=== PATIENT | male | born 1955 | race Caucasian/White ===

== ENCOUNTER 2018-07-09 16:20 | Inpatient (IN) | payer MEDICAID ==
[~2018-07-09] VITALS: Ht 175.3 cm; Wt 83.9 kg
--- NOTE | ~2018-07-09 | MORECARE ---
CASE MANAGEMENT DISCHARGE SUMMARY PATIENT: ZHOU DAVIS UNIT: [id number] ADM DATE: 07/09/18 AGE: 63 : 55 SEX: M ROOM/BED: D.2238 AUTHOR: ANNETTE SANTIAGO PHYSICIAN: REFERRING PHYSICIAN: STACEY WESTBROOK MD DATE OF SERVICE: 07/18/18 Discharge Plan Patient Name: ZHOU DAVIS Facility: [facility]:[place] : 1955 Planned Disposition: Home Anticipated Discharge Date: Discharge Date: Expected LOS: Initial Reviewer: [email or web address] Initial Review Date: 07/10/2018 Generated: 07/18/18 12:27 pm Comments DCP- Discharge Planning Updated by [email or web address]: Chichi Babcock on 07/18/18 10:[address] Refusing MRI today, states "It's too cold and rainy and you cant move in the MRI". The nurse offered antianxiety med, he refuses. Dr. Dent notified he refused MRI. I spoke with Robinson with Dr. Armando and informed her as well. I also informed Robinson that patient is requesting a hospital bed. His therapy notes do not support insurance approval for hospital bed. CM will continue to follow and assist with discharge planning/needs. DCP- Discharge Planning Updated by [id number]: Nedra Sams on 07/17/18 1:[address] CM MET WITH PATIENT TO ASSESS DSICHARGE PLANNING NEEDS. PATIENT STATED THAT HE LIVES WITH HIS AND PLANS TO RETURN THERE AT DISCHARGE. HE USES A CANE, BUT ASKED FOR A HOSPITAL BED WHEN HE IS DISCHARGED HOME. HE IS WAITING TO FIND OUT WHAT HIS TREATMENT PLAN IS GOING TO BE. HIS RHOAN WILL BE THE ONE TO TAKE HER HOME AT DISCHARGE. CM WILL CONTINUE TO FOLLOW AND ASSIST WITH DC PLANNING DCP- Discharge Planning Updated by [email or web address]: Shelby Watters on 07/10/18 3:[address] Patient Name: ZHOU DAVIS Admission Status: ER Accout number: [id number] Admission Date: 07-09-2018 : 1955 Admission Diagnosis: Attending: STACEY WESTBROOK Current LOS: 1 Anticipated DC Date: Planned Disposition: Primary Insurance: MEDICAID [place] Discharge Planning Comments: CM MET WITH PATIENT AND HIS FOR A FEW MINUTES THEN THE DOCTOR CAME IN. HE WAS VERY AGITATED AND DIDN'T WANT TO TALK RIGHT NOW. CM WILL FOLLOW UP WITH HIM ABOUT DC PLANNING NEEDS. HE JUST HAD A BIOPSY DONE TODAY. Parts Facilitator: Shelbydiana Watters DCPIA - Discharge Planning Initial Assessment Updated by [email or web address]: Shelby Watters on 07/10/18 4:22 pm * Is the patient Alert and Oriented? Yes * PCP PIETRO * Pharmacy [facility] * Preadmission Environment Home with Family * ADLs Independent Last DP export: 07/17/18 2:04 Patient Name: ZHOU DAVIS Page 63645 at 1128 All edits/amendments must be made on the electronic document DICTATION DATE: 07/18/181126 NURSE PRACTITIONER PER DIEM: IAN 07/18/181126 RPT#: [id number] DC DATE: STATUS: ADM IN [facility] [address] [place] [address] END OF REPORT
--- NOTE | ~2018-07-09 | MORECARE ---
CASE MANAGEMENT DISCHARGE SUMMARY PATIENT: ZHOU DAVIS UNIT: [id number] ADM DATE: 07/09/18 AGE: 63 : 55 SEX: M ROOM/BED: D.2238 AUTHOR: ANNETTE SANTIAGO PHYSICIAN: REFERRING PHYSICIAN: STACEY WESTBROOK MD DATE OF SERVICE: 07/18/18 Discharge Plan Patient Name: ZHOU DAVIS Facility: [facility]:[place] : 1955 Planned Disposition: Home Anticipated Discharge Date: Discharge Date: Expected LOS: Initial Reviewer: [email or web address] Initial Review Date: 07/10/2018 Generated: 07/18/18 3:31 pm Comments DCP- Discharge Planning Updated by [email or web address]: Chichi Babcock on 07/18/18 1:[address] Met with patient to discuss need for home health, he declines at this time. States he wants to wait to see what Dr. Armando says. States his family will pick him up at discharge. CM will continue to follow and assist with discharge planning/needs. DCP- Discharge Planning Updated by [email or web address]: Chichi Babcock on 07/18/18 11:[address] Spoke with patient regarding discharge plans. I informed him that Dr. Dent states he is ok for discharge today and have tests on an outpatient basis once the biopsy results are back. He states he wants to make sure it is ok with Dr. Armando. I informed him that Dr. Armando would see him today and he would be the one to write the order if he agrees. Patient states he does not need me to get him a hospital bed that he can get one on a "swap shop, they are on there all the time." CM will continue to follow and assist with discharge planning/needs. DCP- Discharge Planning Updated by [email or web address]: Chichi Babcock on 07/18/18 10:[address] Refusing MRI today, states "It's too cold and rainy and you cant move in the MRI". The nurse offered antianxiety med, he refuses. Dr. Dent notified he refused MRI. I spoke with Robinson with Dr. Armando and informed her as well. I also informed Robinson that patient is requesting a hospital bed. His therapy notes do not support insurance approval for hospital bed. CM will continue to follow and assist with discharge planning/needs. DCP- Discharge Planning Updated by [id number]: Nedra Sams on 07/17/18 1:[address] CM MET WITH PATIENT TO ASSESS DSICHARGE PLANNING NEEDS. PATIENT STATED THAT HE LIVES WITH HIS AND PLANS TO RETURN THERE AT DISCHARGE. HE USES A CANE, BUT ASKED FOR A HOSPITAL BED WHEN HE IS DISCHARGED HOME. HE IS WAITING TO FIND OUT WHAT HIS TREATMENT PLAN IS GOING TO BE. HIS ROHAN WILL BE THE ONE TO TAKE HER HOME AT DISCHARGE. CM WILL CONTINUE TO FOLLOW AND ASSIST WITH DC PLANNING DCP- Discharge Planning Updated by [email or web address]: Shelbydiana Watters on 07/10/18 3:[address] Patient Name: ZHOU DAVIS Admission Status: ER Accout number: [id number] Admission Date: 07-09-2018 : 1955 Admission Diagnosis: Attending: STACEY WESTBROOK Current LOS: 1 Anticipated DC Date: Planned Disposition: Primary Insurance: MEDICAID [place] Discharge Planning Comments: CM MET WITH PATIENT AND HIS FOR A FEW MINUTES THEN THE DOCTOR CAME IN. HE WAS VERY AGITATED AND DIDN'T WANT TO TALK RIGHT NOW. CM WILL FOLLOW UP WITH HIM ABOUT DC PLANNING NEEDS. HE JUST HAD A BIOPSY DONE TODAY. Research Neuropsychologist: Shelby Watters DCPIA - Discharge Planning Initial Assessment Updated by [email or web address]: Shelby Janene on 07/10/18 4:22 pm * Is the patient Alert and Oriented? Yes * PCP PIETRO * Pharmacy [facility] [address] * Preadmission Environment Home with Family * ADLs Independent Last DP export: 07/18/18 11:39 Patient Name: ZHOU DAVIS Page [phone] at 1431 All edits/amendments must be made on the electronic document DICTATION DATE: 07/18/181430 LOAD CHECKER: IAN 07/18/181430 RPT#: [id number] DC DATE: STATUS: ADM IN [facility] [address] [place] [address] END OF REPORT
--- NOTE | ~2018-07-09 | OP ---
PATIENT NAME: ZHOU DAVIS MEDICAL RECORD: [id number] :[birth year] LOCATION:D.MS [id number] ADMISSION DATE:07/09/18 SURGEON: NIKOLAY SANABRIA MD DATE OF OPERATION: 07/22/2018 PREOPERATIVE DIAGNOSES: 1. Malignancy, undifferentiated. 2. Metastatic iliac lesion. 3. Pelvic mass. POSTOPERATIVE DIAGNOSES: 1. Malignancy, undifferentiated. 2. Metastatic iliac lesion. 3. Pelvic mass. PROCEDURE: Left subclavian vein port placement. SURGEON: Nikolay Sanabria MD REPORT OF PROCEDURE: The patient's left chest was prepped and draped in sterile fashion. A needle was used to cannulate the left subclavian vein and a guidewire was advanced with ease. Fluoro was then used to note that the wire was in good position in the venous system. A skin incision was made on the left superior lateral chest and a subcutaneous pouch was made over the pectoral fascia. The catheter was tunneled between this pouch and the wire exit site. The port was then sutured to the pectoral fascia using interrupted 2-0 Prolenes. The catheter was cut with a beveled tip at 22 cm. The dilator trocar device placed over the wire, and the wire and dilator were removed. The catheter tip was advanced through the trocar and the trocar was then removed. Fluoro was used to note that the catheter tip was in good position at the right atrial supra vena caval junction. The catheter aspirated nonpulsatile dark blood and flushed easily with heparinized saline. The subcutaneous tissues were reapproximated with interrupted 3-0 Vicryl and the skin was closed with running subcutaneous 5-0 Monocryl. COMPLICATIONS: None. CONDITION: Stable. ANESTHESIA: General endotracheal. BLOOD LOSS: Minimal. TRANSINT:[id number] Voice Confirmation ID: [id number] DOCUMENT ID: [id number] NIKOLAY SANABRIA MD at 0916 CC: [id number] DICTATION DATE: 07/22/18 0851 NEWSPAPER STUFFER: 07/22/18 0943 DIS IN 07/22/18 [address] [place] [address]
--- NOTE | ~2018-07-09 | MORECARE ---
CASE MANAGEMENT DISCHARGE SUMMARY PATIENT: ZHOU DAVIS UNIT: [id number] ADM DATE: 07/09/18 AGE: 63 : 55 SEX: M ROOM/BED: D.2238 AUTHOR: ANNETTE SANTIAGO PHYSICIAN: REFERRING PHYSICIAN: STACEY WESTBROOK MD DATE OF SERVICE: 07/18/18 Discharge Plan Patient Name: ZHOU DAVIS Facility: [facility]:[place] : 1955 Planned Disposition: Home Anticipated Discharge Date: Discharge Date: Expected LOS: Initial Reviewer: [email or web address] Initial Review Date: 07/10/2018 Generated: 07/18/18 1:39 pm Comments DCP- Discharge Planning Updated by [email or web address]: Chichi Babcock on 07/18/18 11:[address] Spoke with patient regarding discharge plans. I informed him that Dr. Dent states he is ok for discharge today and have tests on an outpatient basis once the biopsy results are back. He states he wants to make sure it is ok with Dr. Armando. I informed him that Dr. Armando would see him today and he would be the one to write the order if he agrees. Patient states he does not need me to get him a hospital bed that he can get one on a "swap shop, they are on there all the time." CM will continue to follow and assist with discharge planning/needs. DCP- Discharge Planning Updated by [email or web address]: Chichi Babcock on 07/18/18 10:[address] Refusing MRI today, states "It's too cold and rainy and you cant move in the MRI". The nurse offered antianxiety med, he refuses. Dr. Dent notified he refused MRI. I spoke with Robinson with Dr. Armando and informed her as well. I also informed Robinson that patient is requesting a hospital bed. His therapy notes do not support insurance approval for hospital bed. CM will continue to follow and assist with discharge planning/needs. DCP- Discharge Planning Updated by [id number]: Nedra Sams on 07/17/18 1:[address] CM MET WITH PATIENT TO ASSESS DSICHARGE PLANNING NEEDS. PATIENT STATED THAT HE LIVES WITH HIS AND PLANS TO RETURN THERE AT DISCHARGE. HE USES A CANE, BUT ASKED FOR A HOSPITAL BED WHEN HE IS DISCHARGED HOME. HE IS WAITING TO FIND OUT WHAT HIS TREATMENT PLAN IS GOING TO BE. HIS ROHAN WILL BE THE ONE TO TAKE HER HOME AT DISCHARGE. CM WILL CONTINUE TO FOLLOW AND ASSIST WITH DC PLANNING DCP- Discharge Planning Updated by [email or web address]: Shelby Watters on 07/10/18 3:[address] Patient Name: ZHOU DAVIS Admission Status: ER Accout number: [id number] Admission Date: 07-09-2018 : 1955 Admission Diagnosis: Attending: STACEY WESTBROOK Current LOS: 1 Anticipated DC Date: Planned Disposition: Primary Insurance: MEDICAID [place] Discharge Planning Comments: CM MET WITH PATIENT AND HIS FOR A FEW MINUTES THEN THE DOCTOR CAME IN. HE WAS VERY AGITATED AND DIDN'T WANT TO TALK RIGHT NOW. CM WILL FOLLOW UP WITH HIM ABOUT DC PLANNING NEEDS. HE JUST HAD A BIOPSY DONE TODAY. Mud Boss: Shelby Janene DCPIA - Discharge Planning Initial Assessment Updated by [email or web address]: Shelby Watters on 07/10/18 4:22 pm * Is the patient Alert and Oriented? Yes * PCP PIETRO * [facility] [address] * Preadmission Environment Home with Family * ADLs Independent Last DP export: 07/18/18 10:28 Patient Name: ZHOU DAVIS Page 86425 at 1239 All edits/amendments must be made on the electronic document DICTATION DATE: 07/18/181237 GRAIN AND YEAST PLANTS SUPERVISOR: IAN 07/18/181237 RPT#: [id number] DC DATE: STATUS: ADM IN [facility] [address] [place] [address] END OF REPORT
--- NOTE | ~2018-07-09 | MORECARE ---
CASE MANAGEMENT DISCHARGE SUMMARY PATIENT: ZHOU DAVIS UNIT: [id number] ADM DATE: 07/09/18 AGE: 63 : 55 SEX: M ROOM/BED: D.2238 AUTHOR: PAMELADOC PHYSICIAN: REFERRING PHYSICIAN: STACEY WESTBROOK MD DATE OF SERVICE: 07/22/18 Discharge Plan Patient Name: ZHOU DAVIS Facility: [facility]:[place] : 1955 Planned Disposition: Home Anticipated Discharge Date: Discharge Date: Expected LOS: Initial Reviewer: [email or web address] Initial Review Date: 07/10/2018 Generated: 07/22/18 3:29 pm Comments DCP- Discharge Planning Updated by [email or web address]: Chichi Babcock on 07/22/18 1:[address] Patient Name: ZHOU DAVIS Encounter No: [id number] : 1955 Primary Insurance: MEDICAID [place] Anticipated DC Date: Planned Disposition: Home External Planned Provider: : DCP follow-up note: Patient in agreement with discharge plan. No changes to plan. Declines need for Home health services or DME. Family at bedside. Discharging home today. Case management will follow and assist as needed. Chichi Babcock DCP- Discharge Planning Updated by [email or web address]: Chichi Babcock on 07/18/18 1:[address] Met with patient to discuss need for home health, he declines at this time. States he wants to wait to see what Dr. Armando says. States his family will pick him up at discharge. CM will continue to follow and assist with discharge planning/needs. DCP- Discharge Planning Updated by [email or web address]: Chichi Babcock on 07/18/18 11:[address] Spoke with patient regarding discharge plans. I informed him that Dr. Dent states he is ok for discharge today and have tests on an outpatient basis once the biopsy results are back. He states he wants to make sure it is ok with Dr. Armando. I informed him that Dr. Armando would see him today and he would be the one to write the order if he agrees. Patient states he does not need me to get him a hospital bed that he can get one on a "swap shop, they are on there all the time." CM will continue to follow and assist with discharge planning/needs. DCP- Discharge Planning Updated by [email or web address]: Chichi Scottcesar on 07/18/18 10:[address] Refusing MRI today, states "It's too cold and rainy and you cant move in the MRI". The nurse offered antianxiety med, he refuses. Dr. Dent notified he refused MRI. I spoke with Robinson with Dr. Armando and informed her as well. I also informed Robinson that patient is requesting a hospital bed. His therapy notes do not support insurance approval for hospital bed. CM will continue to follow and assist with discharge planning/needs. DCP- Discharge Planning Updated by [email or web address]: Nedra Sams on 07/17/18 1:[address] CM MET WITH PATIENT TO ASSESS DSICHARGE PLANNING NEEDS. PATIENT STATED THAT HE LIVES WITH HIS AND PLANS TO RETURN THERE AT DISCHARGE. HE USES A CANE, BUT ASKED FOR A HOSPITAL BED WHEN HE IS DISCHARGED HOME. HE IS WAITING TO FIND OUT WHAT HIS TREATMENT PLAN IS GOING TO BE. HIS ROHAN WILL BE THE ONE TO TAKE HER HOME AT DISCHARGE. CM WILL CONTINUE TO FOLLOW AND ASSIST WITH DC PLANNING DCP- Discharge Planning Updated by [email or web address]: Shelby Watters on 07/10/18 3:[address] Patient Name: ZHOU DAVIS Admission Status: Accout number: [id number] Admission Date: 07-09-2018 : 1955 Admission Diagnosis: Attending: STACEY WESTBROOK Current LOS: 1 Anticipated DC Date: Planned Disposition: Primary Insurance: MEDICAID [place] Discharge Planning Comments: CM MET WITH PATIENT AND HIS FOR A FEW MINUTES THEN THE DOCTOR CAME IN. HE WAS VERY AGITATED AND DIDN'T WANT TO TALK RIGHT NOW. CM WILL FOLLOW UP WITH HIM ABOUT DC PLANNING NEEDS. HE JUST HAD A BIOPSY DONE TODAY. Mold Closer Helper: Shelby Watters DCPIA - Discharge Planning Initial Assessment Updated by [email or web address]: Shelby Watters on 07/10/18 4:22 pm * Is the patient Alert and Oriented? Yes * PCP PIETRO * Pharmacy [facility] * Preadmission Environment Home with Family * ADLs Independent Last DP export: 07/18/18 1:31 Patient Name: ZHOU DAVIS Page 22727 at 1430 All edits/amendments must be made on the electronic document DICTATION DATE: 07/22/181428 FOOD AND BEVERAGE ATTENDANT: IAN 07/22/181428 RPT#: [id number] DC DATE: STATUS: ADM IN [facility] [address] [place] [address] END OF REPORT
--- NOTE | ~2018-07-09 | MORECARE ---
CASE MANAGEMENT DISCHARGE SUMMARY PATIENT: ZHOU DAVIS UNIT: [id number] ADM DATE: 07/09/18 AGE: 63 : 55 SEX: M ROOM/BED: D.2238 AUTHOR: ANNETTE SANTIAGO PHYSICIAN: REFERRING PHYSICIAN: STACEY WESTBROOK MD DATE OF SERVICE: 07/17/18 Discharge Plan Patient Name: ZHOU DAVIS Facility: [facility]:[place] : 1955 Planned Disposition: Home Anticipated Discharge Date: Discharge Date: Expected LOS: Initial Reviewer: [email or web address] Initial Review Date: 07/10/2018 Generated: 07/17/18 4:04 pm Comments DCP- Discharge Planning Updated by [id number]: Nedra Sams on 07/17/18 1:[address] CM MET WITH PATIENT TO ASSESS DSICHARGE PLANNING NEEDS. PATIENT STATED THAT HE LIVES WITH HIS AND PLANS TO RETURN THERE AT DISCHARGE. HE USES A CANE, BUT ASKED FOR A HOSPITAL BED WHEN HE IS DISCHARGED HOME. HE IS WAITING TO FIND OUT WHAT HIS TREATMENT PLAN IS GOING TO BE. HIS ROHAN WILL BE THE ONE TO TAKE HER HOME AT DISCHARGE. CM WILL CONTINUE TO FOLLOW AND ASSIST WITH DC PLANNING DCP- Discharge Planning Updated by [email or web address]: Shelby Watters on 07/10/18 3:[address] Patient Name: ZHOU DVAIS Admission Status: ER Accout number: [id number] Admission Date: 07-09-2018 : 1955 Admission Diagnosis: Attending: STACEY WESTBROOK Current LOS: 1 Anticipated DC Date: Planned Disposition: Primary Insurance: MEDICAID [place] Discharge Planning Comments: CM MET WITH PATIENT AND HIS FOR A FEW MINUTES THEN THE DOCTOR CAME IN. HE WAS VERY AGITATED AND DIDN'T WANT TO TALK RIGHT NOW. CM WILL FOLLOW UP WITH HIM ABOUT DC PLANNING NEEDS. HE JUST HAD A BIOPSY DONE TODAY. Under Baster: Shelby Watters DCPIA - Discharge Planning Initial Assessment Updated by [id number]: Shelby Watters on 07/10/18 4:22 pm * Is the patient Alert and Oriented? Yes * PCP PIETRO * Pharmacy [facility] [address] * Preadmission Environment Home with Family * ADLs Independent Last DP export: 10/17/18 3:24 Patient Name: ZHOU DAVIS Page 24957 at 1504 All edits/amendments must be made on the electronic document DICTATION DATE: 07/17/181502 PHOTOGRAPH PRINTER: IAN 07/17/181502 RPT#: [id number] DC DATE: STATUS: ADM IN [facility] [address] [place] [address] END OF REPORT
--- NOTE | ~2018-07-09 | MORECARE ---
CASE MANAGEMENT DISCHARGE SUMMARY PATIENT: ZHOU DAVIS UNIT: [id number] ADM DATE: 07/09/18 AGE: 63 : 55 SEX: M ROOM/BED: D.2238 AUTHOR: ANNETTE SANTIAGO PHYSICIAN: REFERRING PHYSICIAN: STACEY WESTBROOK MD DATE OF SERVICE: 07/23/18 Discharge Plan Patient Name: ZHOU DAVIS Facility: [facility]:[place] : 1955 Planned Disposition: Home Anticipated Discharge Date: Discharge Date: 07/22/2018 Expected LOS: 0 Initial Reviewer: [id number] Initial Review Date: 07/10/2018 Generated: 07/23/18 12:51 pm Comments DCP- Discharge Planning Updated by [email or web address]: Chichi Babcock on 07/22/18 1:[address] Patient Name: ZHOU DAVIS Encounter No: [id number] : 1955 Primary Insurance: MEDICAID [place] Anticipated DC Date: Planned Disposition: Home External Planned Provider: : DCP follow-up note: Patient in agreement with discharge plan. No changes to plan. Declines need for Home health services or DME. Family at bedside. Discharging home today. Case management will follow and assist as needed. Chichi Babcock DCP- Discharge Planning Updated by [email or web address]: Chichi Babcock on 07/18/18 1:[address] Met with patient to discuss need for home health, he declines at this time. States he wants to wait to see what Dr. Armando says. States his family will pick him up at discharge. CM will continue to follow and assist with discharge planning/needs. DCP- Discharge Planning Updated by [email or web address]: Chichi Babcock on 07/18/18 11:[address] Spoke with patient regarding discharge plans. I informed him that Dr. Dent states he is ok for discharge today and have tests on an outpatient basis once the biopsy results are back. He states he wants to make sure it is ok with Dr. Armando. I informed him that Dr. Armando would see him today and he would be the one to write the order if he agrees. Patient states he does not need me to get him a hospital bed that he can get one on a "swap shop, they are on there all the time." CM will continue to follow and assist with discharge planning/needs. DCP- Discharge Planning Updated by [email or web address]: Chichi Babcock on 07/18/18 10:[address] Refusing MRI today, states "It's too cold and rainy and you cant move in the MRI". The nurse offered antianxiety med, he refuses. Dr. Dent notified he refused MRI. I spoke with Robinson with Dr. Armando and informed her as well. I also informed Robinson that patient is requesting a hospital bed. His therapy notes do not support insurance approval for hospital bed. CM will continue to follow and assist with discharge planning/needs. DCP- Discharge Planning Updated by [id number]: Nedra Sams on 07/17/18 1:[address] CM MET WITH PATIENT TO ASSESS DSICHARGE PLANNING NEEDS. PATIENT STATED THAT HE LIVES WITH HIS AND PLANS TO RETURN THERE AT DISCHARGE. HE USES A CANE, BUT ASKED FOR A HOSPITAL BED WHEN HE IS DISCHARGED HOME. HE IS WAITING TO FIND OUT WHAT HIS TREATMENT PLAN IS GOING TO BE. HIS ROHAN WILL BE THE ONE TO TAKE HER HOME AT DISCHARGE. CM WILL CONTINUE TO FOLLOW AND ASSIST WITH DC PLANNING DCP- Discharge Planning Updated by [email or web address]: Shelby Watters on 07/10/18 3:[address] Patient Name: ZHOU DAVIS Admission Status: Accout number: [id number] Admission Date: 07-09-2018 : 1955 Admission Diagnosis: Attending: STACEY WESTBROOK Current LOS: 1 Anticipated DC Date: Planned Disposition: Primary Insurance: MEDICAID [place] Discharge Planning Comments: CM MET WITH PATIENT AND HIS FOR A FEW MINUTES THEN THE DOCTOR CAME IN. HE WAS VERY AGITATED AND DIDN'T WANT TO TALK RIGHT NOW. CM WILL FOLLOW UP WITH HIM ABOUT DC PLANNING NEEDS. HE JUST HAD A BIOPSY DONE TODAY. Mine Development Engineer: Shelby Watters DCPIA - Discharge Planning Initial Assessment Updated by [email or web address]: Shelby Watters on 07/10/18 4:22 pm * Is the patient Alert and Oriented? Yes * PCP PIETRO * Pharmacy [facility] [address] * Preadmission Environment Home with Family * ADLs Independent Last DP export: 10/29/18 1:29 Patient Name: ZHOU DAVIS Page 01860 at 1151 All edits/amendments must be made on the electronic document DICTATION DATE: 07/23/18 115 UI UX ENGINEER: IAN 07/23/18 115 RPT#: [id number] DC DATE:07/22/18 STATUS: DIS IN [facility] [address] [place] [address] END OF REPORT
--- NOTE | ~2018-07-09 | MORECARE ---
CASE MANAGEMENT DISCHARGE SUMMARY PATIENT: ZHOU DAVIS UNIT: [id number] ADM DATE: 07/09/18 AGE: 63 : 55 SEX: M ROOM/BED: D.2238 AUTHOR: ANNETTE SANTIAGO PHYSICIAN: REFERRING PHYSICIAN: STACEY WESTBROOK MD DATE OF SERVICE: 07/10/18 Discharge Plan Patient Name: ZHOU DAVIS [facility] : 1955 Planned Disposition: Anticipated Discharge Date: Discharge Date: Expected LOS: Initial Reviewer: [email or web address] Initial Review Date: 07/10/2018 Generated: 07/10/18 5:24 pm Comments DCP- Discharge Planning Updated by [email or web address]: Shelby Watters on 07/10/18 3:[address] Patient Name: ZHOU DAVIS Admission Status: ER Accout number: [id number] Admission Date: 07-09-2018 : 1955 Admission Diagnosis: Attending: STACEY WESTBROOK Current LOS: 1 Anticipated DC Date: Planned Disposition: Primary Insurance: MEDICAID [place] Discharge Planning Comments: CM MET WITH PATIENT AND HIS FOR A FEW MINUTES THEN THE DOCTOR CAME IN. HE WAS VERY AGITATED AND DIDN'T WANT TO TALK RIGHT NOW. CM WILL FOLLOW UP WITH HIM ABOUT DC PLANNING NEEDS. HE JUST HAD A BIOPSY DONE TODAY. Direct Care Professional: Shelby Watters DCPIA - Discharge Planning Initial Assessment Updated by [email or web address]: Shelbydiana Watters on 07/10/18 4:22 pm * Is the patient Alert and Oriented? Yes * PCP PIETRO * Pharmacy [facility] [address] * Preadmission Environment Home with Family * ADLs Independent Patient Name: ZHOU DAVIS Page 58437 at 1625 All edits/amendments must be made on the electronic document DICTATION DATE: 07/10/181623 TELEPHONE LINEWORKER: IAN 07/10/181623 RPT#: [id number] DC DATE: STATUS: ADM IN [facility] [address] [place] [address] END OF REPORT
[2018-07-09] MEDS ORDERED: XANAX0.25 MG PO (16:25)
[2018-07-09 17:04] LABS: APPEARANCE CLEAR (CLEAR); BILIRUBIN NEGATIVE (NEGATIVE); COLOR YELLOW (YELLOW); GLUCOSE NEGATIVE (NEGATIVE); KETONE NEGATIVE (NEGATIVE); NITRITE NEGATIVE (NEGATIVE); PROTEIN NEGATIVE (NEGATIVE); UROBILINOGEN NORMAL (NORMAL)
[2018-07-09 17:17] LABS: BASOPHILS 0.4 % (0-2); HEMATOCRIT 40.8 % (42.0-54.0); HEMOGLOBIN 14.2 g/dL (13.5-17.5); IMMATURE GRANULOCYTES 0.1 % (0-5); LYMPHOCYTES 22.9 % (15-50); MCH 31.3 pg (26.0-34.0); MCHC 34.8 g/dL (31.0-37.0); MCV 90.1 fL (80.0-100.0); MEAN PLATELET VOLUME 10.9 fL (7.4-10.4); MONOCYTES 11.2 % (2-11); NEUTROPHILS 62.4 % (40-80); PLATELET COUNT 176 10x3/uL (130-400); RBC 4.53 10x6/uL (4.20-6.10); RDW 13.5 % (11.5-14.5); WBC 8.4 10x3/uL (4.8-10.8)
[2018-07-09 17:31] LABS: ALBUMIN 3.4 g/dL (3.4-5.0); ALKALINE PHOSPHATASE 78 U/L (46-116); ALT (SGPT) 78 U/L (10-68); BILIRUBIN - TOTAL 0.67 mg/dL (0.2-1.3); CALC OSMOLALITY 269 mosm/kg (275-300); CALCIUM 9.3 mg/dL (8.5-10.1); CARBON DIOXIDE 26.4 mmol/L (21.0-32.0); CHLORIDE - SERUM 100 mmol/L (98-107); CREATININE - SERUM 0.8 mg/dL (0.6-1.3); GLUCOSE 86 mg/dL (74-106); POTASSIUM - SERUM 4.5 mmol/L (3.5-5.1); PROTEIN - SERUM 8.8 g/dL (6.4-8.2); SODIUM 136 mmol/L (136-145); UREA NITROGEN 10 mg/dL (7-18); eGFR NON AFRICAN AMERICAN > 90 mL/min (90-120)
[2018-07-09 17:37] LABS: TROPONIN-I < 0.017 ng/mL (0.000-0.060)
[2018-07-09 18:29] VITALS: BP 161/83
[2018-07-10 00:18] VITALS: BP 151/75; BMI 27.3
[2018-07-10 03:35] VITALS: BP 162/81
[2018-07-10 09:02] VITALS: BP 156/72
[2018-07-10] MEDS ORDERED: ZESTRIL40 MG PO (09:21)
[2018-07-10] MEDS ORDERED: NORVASC10 MG PO (09:21)
[2018-07-10 10:27] LABS: BASOPHILS 0.2 % (0-2); EOSINOPHILS 4.3 % (0-7); HEMATOCRIT 36.5 % (42.0-54.0); HEMOGLOBIN 12.6 g/dL (13.5-17.5); IMMATURE GRANULOCYTES 0.2 % (0-5); LYMPHOCYTES 24.7 % (15-50); MCH 30.9 pg (26.0-34.0); MCHC 34.5 g/dL (31.0-37.0); MCV 89.5 fL (80.0-100.0); MEAN PLATELET VOLUME 11.1 fL (7.4-10.4); MONOCYTES 12.9 % (2-11); NEUTROPHILS 57.7 % (40-80); PLATELET COUNT 146 10x3/uL (130-400); RBC 4.08 10x6/uL (4.20-6.10); RDW 13.5 % (11.5-14.5)
[2018-07-10 10:43] LABS: APTT 34.5 SECONDS (22.8-39.4); INR 1.08 (0.85-1.17); PROTIME 13.6 SECONDS (11.6-15.0)
[2018-07-10 11:00] LABS: CALCIUM 8.6 mg/dL (8.5-10.1); CARBON DIOXIDE 23.9 mmol/L (21.0-32.0); CHLORIDE - SERUM 104 mmol/L (98-107); CREATININE - SERUM 0.7 mg/dL (0.6-1.3); GLUCOSE 80 mg/dL (74-106); LDH 149 U/L (85-227); POTASSIUM - SERUM 4.3 mmol/L (3.5-5.1); SODIUM 138 mmol/L (136-145); eGFR NON AFRICAN AMERICAN > 90 mL/min (90-120)
[2018-07-10 11:02] LABS: CALC OSMOLALITY 274 mosm/kg (275-300); UREA NITROGEN 13 mg/dL (7-18)
[2018-07-10 13:37] VITALS: BMI 27.3
[2018-07-10 15:56] VITALS: Ht 175.3 cm; Wt 83.9 kg
[2018-07-10 16:05] VITALS: BP 113/69
[2018-07-10 20:00] VITALS: BP 111/65
[2018-07-11 04:56] LABS: BASOPHILS 0.2 % (0-2); EOSINOPHILS 3.2 % (0-7); HEMATOCRIT 36.6 % (42.0-54.0); HEMOGLOBIN 12.8 g/dL (13.5-17.5); IMMATURE GRANULOCYTES 0.2 % (0-5); LYMPHOCYTES 24.3 % (15-50); MCH 30.9 pg (26.0-34.0); MCV 88.4 fL (80.0-100.0); MEAN PLATELET VOLUME 10.6 fL (7.4-10.4); MONOCYTES 11.9 % (2-11); NEUTROPHILS 60.2 % (40-80); PLATELET COUNT 148 10x3/uL (130-400); RBC 4.14 10x6/uL (4.20-6.10); RDW 13.4 % (11.5-14.5); WBC 6.2 10x3/uL (4.8-10.8)
[2018-07-11 05:08] LABS: ALBUMIN 2.8 g/dL (3.4-5.0); ALKALINE PHOSPHATASE 73 U/L (46-116); ALT (SGPT) 82 U/L (10-68); BILIRUBIN - TOTAL 0.64 mg/dL (0.2-1.3); CALC OSMOLALITY 274 mosm/kg (275-300); CALCIUM 8.6 mg/dL (8.5-10.1); CARBON DIOXIDE 22.4 mmol/L (21.0-32.0); CHLORIDE - SERUM 103 mmol/L (98-107); CREATININE - SERUM 0.6 mg/dL (0.6-1.3); GLUCOSE 92 mg/dL (74-106); POTASSIUM - SERUM 4.1 mmol/L (3.5-5.1); PROTEIN - SERUM 7.6 g/dL (6.4-8.2); SODIUM 138 mmol/L (136-145); UREA NITROGEN 10 mg/dL (7-18); eGFR NON AFRICAN AMERICAN > 90 mL/min (90-120)
[2018-07-11 05:43] VITALS: BP 134/80
[2018-07-11 08:52] VITALS: BP 132/75
[2018-07-11 13:28] VITALS: BP 116/70
[2018-07-11 15:27] LABS: CEA 2.1 ng/mL (0.0-4.7)
[2018-07-11 17:53] VITALS: BP 146/75
[2018-07-11 21:24] VITALS: BP 147/76
[2018-07-12 04:48] LABS: BASOPHILS 0.2 % (0-2); EOSINOPHILS 4.1 % (0-7); HEMATOCRIT 36.4 % (42.0-54.0); HEMOGLOBIN 12.6 g/dL (13.5-17.5); IMMATURE GRANULOCYTES 0.2 % (0-5); LYMPHOCYTES 27.7 % (15-50); MCH 30.7 pg (26.0-34.0); MCHC 34.6 g/dL (31.0-37.0); MCV 88.6 fL (80.0-100.0); MONOCYTES 12.6 % (2-11); NEUTROPHILS 55.2 % (40-80); PLATELET COUNT 151 10x3/uL (130-400); RBC 4.11 10x6/uL (4.20-6.10); RDW 13.3 % (11.5-14.5); WBC 6.4 10x3/uL (4.8-10.8)
[2018-07-12 05:08] LABS: ALBUMIN 2.8 g/dL (3.4-5.0); ALKALINE PHOSPHATASE 74 U/L (46-116); ALT (SGPT) 76 U/L (10-68); BILIRUBIN - TOTAL 0.63 mg/dL (0.2-1.3); CALC OSMOLALITY 270 mosm/kg (275-300); CALCIUM 8.7 mg/dL (8.5-10.1); CARBON DIOXIDE 23.2 mmol/L (21.0-32.0); CHLORIDE - SERUM 103 mmol/L (98-107); CREATININE - SERUM 0.6 mg/dL (0.6-1.3); GLUCOSE 97 mg/dL (74-106); POTASSIUM - SERUM 3.9 mmol/L (3.5-5.1); PROTEIN - SERUM 7.6 g/dL (6.4-8.2); SODIUM 136 mmol/L (136-145); UREA NITROGEN 10 mg/dL (7-18); eGFR NON AFRICAN AMERICAN > 90 mL/min (90-120)
[2018-07-12 05:18] VITALS: BP 127/73
[2018-07-12 08:57] VITALS: BP 134/85
[2018-07-12 11:30] VITALS: BP 134/86
[2018-07-12 12:30] VITALS: BP 117/78
[2018-07-12 15:26] LABS: SPE - A/G RATIO 0.8 (0.7-1.7); SPE - ALPHA-1 GLOBULIN 0.3 g/dL (0.0-0.4); SPE - ALPHA-2 GLOBULIN 0.8 g/dL (0.4-1.0); SPE - BETA GLOBULIN 0.9 g/dL (0.7-1.3); SPE - GAMMA GLOBULIN 1.7 g/dL (0.4-1.8); SPE - M-SPIKE Not Observed g/dL (Not Observed); SPE - TOTAL PROTEIN 6.7 g/dL (6.0-8.5)
[2018-07-12 16:29] VITALS: BP 109/72
[2018-07-12 21:00] VITALS: BP 131/72
[2018-07-13 05:10] VITALS: BP 144/78
[2018-07-13 05:36] LABS: BASOPHILS 0.2 % (0-2); EOSINOPHILS 3.6 % (0-7); HEMATOCRIT 37.4 % (42.0-54.0); HEMOGLOBIN 13.1 g/dL (13.5-17.5); IMMATURE GRANULOCYTES 0.2 % (0-5); LYMPHOCYTES 23.5 % (15-50); MCH 30.9 pg (26.0-34.0); MCV 88.2 fL (80.0-100.0); MEAN PLATELET VOLUME 11.4 fL (7.4-10.4); NEUTROPHILS 61.5 % (40-80); PLATELET COUNT 141 10x3/uL (130-400); RBC 4.24 10x6/uL (4.20-6.10); RDW 13.5 % (11.5-14.5); WBC 6.4 10x3/uL (4.8-10.8)
[2018-07-13 05:52] LABS: ALKALINE PHOSPHATASE 83 U/L (46-116); ALT (SGPT) 84 U/L (10-68); BILIRUBIN - TOTAL 0.63 mg/dL (0.2-1.3); CALC OSMOLALITY 273 mosm/kg (275-300); CALCIUM 9.1 mg/dL (8.5-10.1); CARBON DIOXIDE 23.8 mmol/L (21.0-32.0); CHLORIDE - SERUM 104 mmol/L (98-107); CREATININE - SERUM 0.5 mg/dL (0.6-1.3); GLUCOSE 97 mg/dL (74-106); POTASSIUM - SERUM 4.4 mmol/L (3.5-5.1); PROTEIN - SERUM 7.4 g/dL (6.4-8.2); SODIUM 137 mmol/L (136-145); UREA NITROGEN 12 mg/dL (7-18); eGFR NON AFRICAN AMERICAN > 90 mL/min (90-120)
[2018-07-13 09:40] VITALS: BP 136/80
[2018-07-13 11:10] LABS: ALPHA FETOPROTEIN -(TUMOR MRK) 6.7 ng/mL (0.0-8.3); CEA 2.2 ng/mL (0.0-4.7)
[2018-07-13 16:36] VITALS: BP 140/80
[2018-07-13 20:05] VITALS: BP 144/78
[2018-07-14 05:25] VITALS: BP 138/75
[2018-07-14 05:55] LABS: BASOPHILS 0.2 % (0-2); EOSINOPHILS 4.2 % (0-7); HEMATOCRIT 36.5 % (42.0-54.0); HEMOGLOBIN 12.6 g/dL (13.5-17.5); IMMATURE GRANULOCYTES 0.3 % (0-5); LYMPHOCYTES 25.1 % (15-50); MCH 30.4 pg (26.0-34.0); MCHC 34.5 g/dL (31.0-37.0); MCV 88.2 fL (80.0-100.0); MEAN PLATELET VOLUME 10.6 fL (7.4-10.4); MONOCYTES 12.6 % (2-11); NEUTROPHILS 57.6 % (40-80); PLATELET COUNT 147 10x3/uL (130-400); RBC 4.14 10x6/uL (4.20-6.10); RDW 13.7 % (11.5-14.5); WBC 6.2 10x3/uL (4.8-10.8)
[2018-07-14 06:33] LABS: ALBUMIN 2.8 g/dL (3.4-5.0); ALKALINE PHOSPHATASE 74 U/L (46-116); ALT (SGPT) 79 U/L (10-68); CALC OSMOLALITY 270 mosm/kg (275-300); CALCIUM 8.8 mg/dL (8.5-10.1); CARBON DIOXIDE 21.4 mmol/L (21.0-32.0); CHLORIDE - SERUM 103 mmol/L (98-107); CREATININE - SERUM 0.6 mg/dL (0.6-1.3); GLUCOSE 90 mg/dL (74-106); PROTEIN - SERUM 7.7 g/dL (6.4-8.2); SODIUM 136 mmol/L (136-145); UREA NITROGEN 10 mg/dL (7-18); eGFR NON AFRICAN AMERICAN > 90 mL/min (90-120)
[2018-07-14 08:24] VITALS: BP 133/76
[2018-07-14 14:21] VITALS: BP 119/67
[2018-07-14 19:13] VITALS: BP 138/77
[2018-07-15 04:31] VITALS: BP 123/81
[2018-07-15 05:34] LABS: BASOPHILS 0.3 % (0-2); EOSINOPHILS 3.9 % (0-7); HEMATOCRIT 34.9 % (42.0-54.0); IMMATURE GRANULOCYTES 0.2 % (0-5); LYMPHOCYTES 27.3 % (15-50); MCH 30.2 pg (26.0-34.0); MCHC 34.4 g/dL (31.0-37.0); MCV 87.7 fL (80.0-100.0); MEAN PLATELET VOLUME 10.6 fL (7.4-10.4); MONOCYTES 13.4 % (2-11); NEUTROPHILS 54.9 % (40-80); PLATELET COUNT 140 10x3/uL (130-400); RBC 3.98 10x6/uL (4.20-6.10); RDW 13.5 % (11.5-14.5); WBC 6.2 10x3/uL (4.8-10.8)
[2018-07-15 06:02] LABS: ALBUMIN 2.7 g/dL (3.4-5.0); ALKALINE PHOSPHATASE 74 U/L (46-116); ALT (SGPT) 80 U/L (10-68); BILIRUBIN - TOTAL 0.58 mg/dL (0.2-1.3); CALC OSMOLALITY 270 mosm/kg (275-300); CALCIUM 8.8 mg/dL (8.5-10.1); CARBON DIOXIDE 24.7 mmol/L (21.0-32.0); CHLORIDE - SERUM 103 mmol/L (98-107); CREATININE - SERUM 0.6 mg/dL (0.6-1.3); GLUCOSE 91 mg/dL (74-106); PROTEIN - SERUM 7.5 g/dL (6.4-8.2); SODIUM 136 mmol/L (136-145); UREA NITROGEN 9 mg/dL (7-18); eGFR NON AFRICAN AMERICAN > 90 mL/min (90-120)
[2018-07-15 07:59] VITALS: BP 137/74
[2018-07-15 11:32] VITALS: BP 137/74
[2018-07-15 12:11] VITALS: BP 139/73
[2018-07-15 17:01] VITALS: BP 129/80
[2018-07-15 20:00] VITALS: BP 125/73
[2018-07-16 03:52] VITALS: BP 144/82
[2018-07-16 05:20] LABS: BASOPHILS 0.3 % (0-2); EOSINOPHILS 4.1 % (0-7); HEMATOCRIT 35.6 % (42.0-54.0); HEMOGLOBIN 12.4 g/dL (13.5-17.5); IMMATURE GRANULOCYTES 0.3 % (0-5); LYMPHOCYTES 27.7 % (15-50); MCH 30.6 pg (26.0-34.0); MCHC 34.8 g/dL (31.0-37.0); MCV 87.9 fL (80.0-100.0); MEAN PLATELET VOLUME 10.6 fL (7.4-10.4); MONOCYTES 13.4 % (2-11); NEUTROPHILS 54.2 % (40-80); PLATELET COUNT 139 10x3/uL (130-400); RBC 4.05 10x6/uL (4.20-6.10); RDW 13.6 % (11.5-14.5); WBC 6.4 10x3/uL (4.8-10.8)
[2018-07-16 05:46] LABS: ALBUMIN 2.8 g/dL (3.4-5.0); ALKALINE PHOSPHATASE 71 U/L (46-116); ALT (SGPT) 89 U/L (10-68); BILIRUBIN - TOTAL 0.63 mg/dL (0.2-1.3); CALC OSMOLALITY 270 mosm/kg (275-300); CARBON DIOXIDE 22.9 mmol/L (21.0-32.0); CHLORIDE - SERUM 102 mmol/L (98-107); CREATININE - SERUM 0.7 mg/dL (0.6-1.3); GLUCOSE 97 mg/dL (74-106); POTASSIUM - SERUM 4.1 mmol/L (3.5-5.1); PROTEIN - SERUM 7.5 g/dL (6.4-8.2); SODIUM 136 mmol/L (136-145); UREA NITROGEN 11 mg/dL (7-18); eGFR NON AFRICAN AMERICAN > 90 mL/min (90-120)
[2018-07-16 08:18] VITALS: BP 100/72
[2018-07-16 12:16] VITALS: BP 111/68
[2018-07-16 15:58] VITALS: BP 117/68
[2018-07-16 20:00] VITALS: BP 136/78
[2018-07-17 03:47] VITALS: BP 120/72
[2018-07-17 06:37] LABS: ALBUMIN 2.7 g/dL (3.4-5.0); ALKALINE PHOSPHATASE 72 U/L (46-116); ALT (SGPT) 96 U/L (10-68); BASOPHILS 0.3 % (0-2); BILIRUBIN - TOTAL 0.73 mg/dL (0.2-1.3); CALC OSMOLALITY 268 mosm/kg (275-300); CALCIUM 8.7 mg/dL (8.5-10.1); CARBON DIOXIDE 20.5 mmol/L (21.0-32.0); CHLORIDE - SERUM 102 mmol/L (98-107); EOSINOPHILS 4.7 % (0-7); GLUCOSE 96 mg/dL (74-106); IMMATURE GRANULOCYTES 0.3 % (0-5); LYMPHOCYTES 26.1 % (15-50); MCH 30.5 pg (26.0-34.0); MCHC 34.3 g/dL (31.0-37.0); MCV 89.1 fL (80.0-100.0); MEAN PLATELET VOLUME 11.6 fL (7.4-10.4); MONOCYTES 11.4 % (2-11); NEUTROPHILS 57.2 % (40-80); PLATELET COUNT 112 10x3/uL (130-400); POTASSIUM - SERUM 4.1 mmol/L (3.5-5.1); PROTEIN - SERUM 7.1 g/dL (6.4-8.2); RBC 3.93 10x6/uL (4.20-6.10); RDW 13.6 % (11.5-14.5); SODIUM 135 mmol/L (136-145); UREA NITROGEN 9 mg/dL (7-18); WBC 6.2 10x3/uL (4.8-10.8)
[2018-07-17 06:38] LABS: CREATININE - SERUM 0.5 mg/dL (0.6-1.3); eGFR NON AFRICAN AMERICAN > 90 mL/min (90-120)
[2018-07-17 09:07] VITALS: BP 118/70
[2018-07-17 12:29] VITALS: BP 139/74
[2018-07-17 17:14] VITALS: BP 138/79
[2018-07-18 04:00] VITALS: BP 128/75
[2018-07-18 04:56] LABS: BASOPHILS 0.3 % (0-2); EOSINOPHILS 4.1 % (0-7); HEMATOCRIT 36.3 % (42.0-54.0); HEMOGLOBIN 12.5 g/dL (13.5-17.5); IMMATURE GRANULOCYTES 0.2 % (0-5); LYMPHOCYTES 27.1 % (15-50); MCH 30.3 pg (26.0-34.0); MCHC 34.4 g/dL (31.0-37.0); MCV 87.9 fL (80.0-100.0); MEAN PLATELET VOLUME 10.6 fL (7.4-10.4); MONOCYTES 11.5 % (2-11); NEUTROPHILS 56.8 % (40-80); RBC 4.13 10x6/uL (4.20-6.10); RDW 13.6 % (11.5-14.5); WBC 6.3 10x3/uL (4.8-10.8)
[2018-07-18 04:58] LABS: PLATELET COUNT 158 10x3/uL (130-400)
[2018-07-18 05:22] LABS: ALBUMIN 2.8 g/dL (3.4-5.0); ALKALINE PHOSPHATASE 77 U/L (46-116); ALT (SGPT) 99 U/L (10-68); BILIRUBIN - TOTAL 0.55 mg/dL (0.2-1.3); CALC OSMOLALITY 270 mosm/kg (275-300); CARBON DIOXIDE 24.3 mmol/L (21.0-32.0); CHLORIDE - SERUM 101 mmol/L (98-107); GLUCOSE 102 mg/dL (74-106); POTASSIUM - SERUM 4.1 mmol/L (3.5-5.1); PROTEIN - SERUM 7.7 g/dL (6.4-8.2); SODIUM 136 mmol/L (136-145); UREA NITROGEN 10 mg/dL (7-18)
[2018-07-18 05:32] LABS: CREATININE - SERUM 0.7 mg/dL (0.6-1.3); eGFR NON AFRICAN AMERICAN > 90 mL/min (90-120)
[2018-07-18 08:34] VITALS: BP 125/69
[2018-07-18 15:45] VITALS: BP 120/72
[2018-07-18 20:00] VITALS: BP 123/79
[2018-07-19] VITALS: BP 130/76
[2018-07-19 04:00] VITALS: BP 125/71
[2018-07-19 06:23] LABS: HEMATOCRIT 35.1 % (42.0-54.0); HEMOGLOBIN 12.2 g/dL (13.5-17.5); MCH 29.8 pg (26.0-34.0); MCHC 34.8 g/dL (31.0-37.0); MCV 85.8 fL (80.0-100.0); MEAN PLATELET VOLUME 10.4 fL (7.4-10.4); NEUTROPHILS 56.1 % (40-80); PLATELET COUNT 157 10x3/uL (130-400); RBC 4.09 10x6/uL (4.20-6.10); RDW 13.3 % (11.5-14.5); WBC 6.1 10x3/uL (4.8-10.8)
[2018-07-19 06:39] LABS: ALBUMIN 2.8 g/dL (3.4-5.0); ALKALINE PHOSPHATASE 78 U/L (46-116); ALT (SGPT) 98 U/L (10-68); CALC OSMOLALITY 268 mosm/kg (275-300); CARBON DIOXIDE 25.3 mmol/L (21.0-32.0); CHLORIDE - SERUM 101 mmol/L (98-107); CREATININE - SERUM 0.6 mg/dL (0.6-1.3); GLUCOSE 96 mg/dL (74-106); POTASSIUM - SERUM 4.1 mmol/L (3.5-5.1); PROTEIN - SERUM 7.7 g/dL (6.4-8.2); SODIUM 135 mmol/L (136-145); UREA NITROGEN 11 mg/dL (7-18); eGFR NON AFRICAN AMERICAN > 90 mL/min (90-120)
[2018-07-19 07:55] VITALS: BP 116/65
[2018-07-19 11:19] LABS: CA 15-3 8.6 U/mL (0.0-25.0)
[2018-07-19 11:54] VITALS: BP 132/71
[2018-07-19 17:35] VITALS: BP 130/66
[2018-07-19 20:23] VITALS: BP 134/65
[2018-07-20 04:43] VITALS: BP 119/64
[2018-07-20 05:32] LABS: BASOPHILS 0.3 % (0-2); EOSINOPHILS 3.9 % (0-7); HEMATOCRIT 35.6 % (42.0-54.0); HEMOGLOBIN 12.3 g/dL (13.5-17.5); IMMATURE GRANULOCYTES 0.1 % (0-5); LYMPHOCYTES 27.2 % (15-50); MCH 30.4 pg (26.0-34.0); MCHC 34.6 g/dL (31.0-37.0); MEAN PLATELET VOLUME 11.2 fL (7.4-10.4); MONOCYTES 12.5 % (2-11); PLATELET COUNT 173 10x3/uL (130-400); RBC 4.05 10x6/uL (4.20-6.10); RDW 13.7 % (11.5-14.5); WBC 7.2 10x3/uL (4.8-10.8)
[2018-07-20 05:35] LABS: MCV 87.9 fL (80.0-100.0)
[2018-07-20 05:58] LABS: ALBUMIN 2.8 g/dL (3.4-5.0); ALKALINE PHOSPHATASE 75 U/L (46-116); ALT (SGPT) 94 U/L (10-68); BILIRUBIN - TOTAL 0.68 mg/dL (0.2-1.3); CALC OSMOLALITY 267 mosm/kg (275-300); CALCIUM 9.3 mg/dL (8.5-10.1); CHLORIDE - SERUM 101 mmol/L (98-107); CREATININE - SERUM 0.7 mg/dL (0.6-1.3); GLUCOSE 91 mg/dL (74-106); PROTEIN - SERUM 7.7 g/dL (6.4-8.2); SODIUM 134 mmol/L (136-145); UREA NITROGEN 12 mg/dL (7-18); eGFR NON AFRICAN AMERICAN > 90 mL/min (90-120)
[2018-07-20 07:51] VITALS: BP 116/68
[2018-07-20 12:55] VITALS: BP 110/60
[2018-07-20 17:17] VITALS: BP 116/68
[2018-07-20 20:00] VITALS: BP 117/63
[2018-07-21 04:00] VITALS: BP 112/70
[2018-07-21 08:34] VITALS: BP 108/57
[2018-07-21 11:31] VITALS: BP 126/57
[2018-07-21 17:26] VITALS: BP 131/65
[2018-07-21 19:44] VITALS: BP 122/71
[2018-07-22 04:33] VITALS: BP 112/65
[2018-07-22 04:37] LABS: BASOPHILS 0.3 % (0-2); EOSINOPHILS 2.7 % (0-7); HEMATOCRIT 32.6 % (42.0-54.0); HEMOGLOBIN 11.4 g/dL (13.5-17.5); IMMATURE GRANULOCYTES 0.4 % (0-5); LYMPHOCYTES 24.1 % (15-50); MCH 30.3 pg (26.0-34.0); MCV 86.7 fL (80.0-100.0); MONOCYTES 15.1 % (2-11); NEUTROPHILS 57.4 % (40-80); PLATELET COUNT 172 10x3/uL (130-400); RBC 3.76 10x6/uL (4.20-6.10); RDW 13.7 % (11.5-14.5); WBC 7.5 10x3/uL (4.8-10.8)
[2018-07-22 04:52] LABS: CALC OSMOLALITY 265 mosm/kg (275-300); CARBON DIOXIDE 27.7 mmol/L (21.0-32.0); CHLORIDE - SERUM 99 mmol/L (98-107); CREATININE - SERUM 0.6 mg/dL (0.6-1.3); GLUCOSE 93 mg/dL (74-106); POTASSIUM - SERUM 3.9 mmol/L (3.5-5.1); SODIUM 133 mmol/L (136-145); UREA NITROGEN 13 mg/dL (7-18); eGFR NON AFRICAN AMERICAN > 90 mL/min (90-120)
[2018-07-22 09:30] VITALS: BP 94/52
[2018-07-22 09:32] VITALS: BP 94/52
[2018-07-22 10:34] VITALS: BP 101/61
[2018-07-22 12:32] VITALS: BP 117/73
[2018-07-22] MEDS ORDERED: PROTONIX40 MG PO (12:56)
[2018-07-22] MEDS ORDERED: MIRALAX17 GM PO (12:56)
[2018-07-22] MEDS ORDERED: Nicoderm [PBKC] TRANSDERM (12:57)
[2018-07-22] MEDS ORDERED: MS CONTIN15 MG PO (12:57)
== END 2018-07-22 15:24 | disposition home or self-care (01) | DRG 478 ==
LOC: D.ER 16:20 → D.EDHOLD 20:16 → D.MS 20:16
PROVIDERS: Emergency Medicine; Family Medicine; Internal Medicine Hematology & Oncology; Internal Medicine Nephrology; Specialist
PROC: 0QB23ZX Excision of Right Pelvic Bone, Percutaneous Approach, Diagnostic (ICD-10-PCS; principal; 2018-07-10 11:00)
PROC: 0JH63WZ Insertion of Totally Implantable Vascular Access Device into Chest Subcutaneous Tissue and Fascia, Percutaneous Approach (ICD-10-PCS; 2018-07-22)
PROC: 02HV33Z Insertion of Infusion Device into Superior Vena Cava, Percutaneous Approach (ICD-10-PCS; 2018-07-22)
PROC: B5181ZA Fluoroscopy of Superior Vena Cava using Low Osmolar Contrast, Guidance (ICD-10-PCS; 2018-07-22)
DX: C79.51 Secondary malignant neoplasm of bone (principal); F17.213 Nicotine dependence, cigarettes, with withdrawal; R19.09 Other intra-abdominal and pelvic swelling, mass and lump; K76.9 Liver disease, unspecified; N28.9 Disorder of kidney and ureter, unspecified; H40.9 Unspecified glaucoma; B19.20 Unspecified viral hepatitis C without hepatic coma; I10 Essential (primary) hypertension; F41.9 Anxiety disorder, unspecified; Z91.19 Patient's noncompliance with other medical treatment and regimen; F12.90 Cannabis use, unspecified, uncomplicated; D73.89 Other diseases of spleen; D64.9 Anemia, unspecified

== ENCOUNTER 2019-03-28 17:06 | Inpatient (IN) | payer MEDICAID ==
[~2019-03-28] VITALS: Ht 175.3 cm; Wt 65.8 kg
[~2019-03-28 17:06] MED LIST: MIRALAX17 GM PO; MS CONTIN15 MG PO; NORVASC10 MG PO; Nicoderm [PBKC] TRANSDERM; PROTONIX40 MG PO; XANAX0.25 MG PO; ZESTRIL40 MG PO
[2019-03-28 17:56] LABS: BASOPHILS 0.1 % (0-2); EOSINOPHILS 0.4 % (0-7); HEMATOCRIT 32.5 % (42.0-54.0); HEMOGLOBIN 11.1 g/dL (13.5-17.5); IMMATURE GRANULOCYTES 0.4 % (0-5); MCH 25.9 pg (26.0-34.0); MCHC 34.2 g/dL (31.0-37.0); MCV 75.8 fL (80.0-100.0); MEAN PLATELET VOLUME 9.1 fL (7.4-10.4); NEUTROPHILS 81.1 % (40-80); RBC 4.29 10x6/uL (4.20-6.10); RDW 17.2 % (11.5-14.5); WBC 10.6 10x3/uL (4.8-10.8)
[2019-03-28 18:02] LABS: PLATELET COUNT 270 10x3/uL (130-400)
[2019-03-28 18:03] LABS: APTT 30.4 SECONDS (22.8-39.4); INR 1.23 (0.85-1.17); PROTIME 14.9 SECONDS (11.6-15.0)
[2019-03-28 18:13] LABS: ALBUMIN 2.4 g/dL (3.4-5.0); ALKALINE PHOSPHATASE 90 U/L (46-116); ALT (SGPT) 32 U/L (10-68); BILIRUBIN - TOTAL 0.53 mg/dL (0.2-1.3); CALC OSMOLALITY 269 mosm/kg (275-300); CALCIUM 9.2 mg/dL (8.5-10.1); CARBON DIOXIDE 27.3 mmol/L (21.0-32.0); CHLORIDE - SERUM 101 mmol/L (98-107); CREATININE - SERUM 0.6 mg/dL (0.6-1.3); GLUCOSE 105 mg/dL (74-106); POTASSIUM - SERUM 3.6 mmol/L (3.5-5.1); SODIUM 135 mmol/L (136-145); UREA NITROGEN 12 mg/dL (7-18); eGFR NON AFRICAN AMERICAN > 90 mL/min (90-120)
[2019-03-28 18:27] LABS: CKMB 0.2 U/L (0.0-3.6); CREATINE KINASE 12 UL (21-232); THYROID STIMULATING HORMONE 0.87 uIU/mL (0.36-3.74)
[2019-03-28 18:47] LABS: TROPONIN-I < 0.017 ng/mL (0.000-0.060)
--- NOTE | 2019-03-28 19:20 | NUR ---
Spouse: Susie Batista - [phone] Tara Hannah - step daughter - [phone] Talib - step son - [phone] Atul Batista - gama son - [phone] Patient not able to respond or answer questions at this time. Dr. Garcias is recomending [facility] Hospe services. CM spoke to patient's who requested that I call her daughter Tara to discuss with her as well. Tara confirmed that the family is aware of his terminal diagnosis and they are all in agreement for [facility]ice with [facility]. GUZMAN for discussed over the phone and signed by myself and witnessed by Paula Mackay APRN for telephone consent. CM has paged the [facility] nurse patient registration manager and will await a return call for hospice eval. Susie stated she is not able to come to the hospital as she has a broke back. She requested that Tara take care of signing the hospice paperwork or ask the hospice nurse to bring the paperwork to her home. CM will ask the hospice nurse which option is best upon return call.
[2019-03-28 19:30] VITALS: BP 132/83
--- NOTE | 2019-03-28 19:51 | NUR ---
Received call from Hanna with [facility] who stated she was in [place] finishing a visit and then she would be here to evaluate the pateint. She said it would be atleast an hour before she could get here. Hanna stated Tara could not sign the legals for admission into hospice but the could. Tara stated she would bring the patient's to the hospital once the paperwork was ready to be signed. CM updated Charge Nurse Rissa and the patient's nurse Karissa of the above information. Rufina Sands RN, CCM
[2019-03-28 20:30] VITALS: BP 140/77
--- NOTE | 2019-03-28 20:49 | NUR ---
PT'S AND DAUGHTER AT PT'S BEDSIDE. PT'S VITAL SIGNS WNL. WILL CONTINUE TO MONITOR.
--- NOTE | 2019-03-28 21:14 | NUR ---
SALOMON VASQUEZ FROM [facility] HERE TO EVALUATE PATIENT.
[2019-03-28 21:30] VITALS: BP 131/81
[2019-03-28 22:30] VITALS: BP 138/82
--- NOTE | 2019-03-28 22:31 | NUR ---
PT TO BE ADMITTED TO DR. WELLER PER DR. DOWNING.
--- NOTE | 2019-03-28 23:30 | NUR ---
RECEIVED TO FLOOR, ACCOMPANIED BY ER STAFF. ORIENTED TO SELF. UNABLE TO COMPLETE FULL SENTENCES. PT IS A POOR HISTORIAN. DENIES PAIN, BUT REPLIES, "OW," AND, "OUCH," WHEN BEING TURNED. PT DRANK SOME WATER W/O DIFFICULTY. . BED ALARM TURNED ON, CALL LIGHT IN REACH, SIDE RAILS X 2. WILL CONTINUE TO ONITOR.
[2019-03-29] VITALS (7 sets, daily range): BP systolic 121–139; BP diastolic 73–84; BMI 21.4
--- NOTE | 2019-03-29 09:44 | NUR ---
PT ALERT TO SELF AND PLACE. BREATH SOUNDS CLEAR BILAT. RIGHT SIDE OF ABDOMEN FIRM AND TENDER, LEFT SIDE SOFT AND PALPABLE. IV PULLED OUT. BED LOW, CALL LIGHT IN REACH. NO OTHER NEEDS AT THIS TIME.
--- NOTE | 2019-03-29 13:43 | MORECARE ---
CASE MANAGEMENT DISCHARGE SUMMARY PATIENT: ZHOU DAVIS UNIT: [id number] ADM DATE: 03/28/19 AGE: 63 : 55 SEX: M ROOM/BED: D.2207 AUTHOR: ANNETTE SANTIAGO PHYSICIAN: REFERRING PHYSICIAN: CARMEN AGUILERA MD DATE OF SERVICE: 03/29/19 Discharge Plan Patient Name: ZHOU DAVIS [facility] [facility] 1955 Planned Disposition: Nursing Home Facility Anticipated Discharge Date: Discharge Date: Expected LOS: Initial Reviewer: [id number] Initial Review Date: 03/28/2019 Generated: 03/29/19 2:43 pm Patient Name: ZHOU DAVIS Page [id number] at 1343 All edits/amendments must be made on the electronic document DICTATION DATE: 03/29/19 1342 MINING AND QUARRYING MACHINERY REPAIRER: IAN 03/29/19 1342 RPT#: [id number] DC DATE: STATUS: ADM IN [facility] [address] [place] [address] END OF REPORT
--- NOTE | 2019-03-29 13:51 | MORECARE ---
CASE MANAGEMENT DISCHARGE SUMMARY PATIENT: ZHOU DAVIS UNIT: [id number] ADM DATE: 03/28/19 AGE: 63 : 55 SEX: M ROOM/BED: D.2207 AUTHOR: ANNETTE SANTIAGO PHYSICIAN: REFERRING PHYSICIAN: CARMEN AGUILERA MD DATE OF SERVICE: 03/29/19 Discharge Plan Patient Name: ZHOU DAVIS [facility] [facility] 1955 Planned Disposition: Longterm Facility Anticipated Discharge Date: Discharge Date: Expected LOS: Initial Reviewer: [email or web address] Initial Review Date: 03/28/2019 Generated: 03/29/19 2:50 pm Comments DCP- Discharge Planning Updated by [email or web address]: Marioladiana Carballo on 03/29/19 12:[address] LATE ENTRY 0900 CM WAS ADVISED OF PLAN FOR [facility]. PATIENT WAS SEEN BY [facility] NURSE IN THE ER. PLAN FOR PATIENT TO BE EVALUATED BY [facility]LLNESS DIRECTOR, MIKE , THIS AM. THE PATIENT APPARENNTLY HAD BEEN ON SERVICE W/ [facility], PRIOR TO ADMISSION. RICHAR SPOKE WITH THE ONCALL NURSE. SHE ONLY HAD ACCESS TO THE NOTES FOR 02/27/19 VISIT, THEY ARE IN PROCESS OF CHANGING SYSTEMS. MIKE ON SITE. SPOKE WITH THE TOWER OPERATOR, PRIMARY NURSE AND TRAM VILLALOBOS. HE HAD REVIEWED THE NOTES PROVIDED BY RICHAR . AWAITED CALL BACK FROM DR WELLER, GRASS FARMER AND HIS BRANCH LIBRARY CLERK. IN ADDITION HE ALSO CONTACT [facility] [place] BRANCH LIBRARY CLERK FOR RECENT NOTES. Last DP export: 03/29/19 12:43 pm Patient Name: ZHOU DAVIS Page [id number] at 1351 All edits/amendments must be made on the electronic document DICTATION DATE: 03/29/19 1350 CENTER MACHINE OPERATOR: IAN 03/29/19 1350 RPT#: [id number] DC DATE: STATUS: ADM IN [facility] [address] [place] [address] END OF REPORT
--- NOTE | 2019-03-29 14:49 | MORECARE ---
CASE MANAGEMENT DISCHARGE SUMMARY PATIENT: ZHOU DAVIS UNIT: [id number] ADM DATE: 03/28/19 AGE: 63 : 55 SEX: M ROOM/BED: D.2207 AUTHOR: PAMELADOC PHYSICIAN: REFERRING PHYSICIAN: CARMEN AGUILERA MD DATE OF SERVICE: 03/29/19 Discharge Plan Patient Name: ZHOU DAVIS Facility: [facility]:[place] : 1955 Planned Disposition: Prison Facility Anticipated Discharge Date: Discharge Date: Expected LOS: Initial Reviewer: [email or web address] Initial Review Date: 03/28/2019 Generated: 03/29/19 3:49 pm Comments DCP- Discharge Planning Updated by [id number]: Mariola Carballo on 03/29/19 1:[address] LATE ENTRY 1240 PATIENT HAD FAMILY AT THE BEDSIDE ASKING QUESTIONS REGARDING HOSPICE. MIKE HAD GONE TO THE OFFICE. PRIMARY NURSE SPOKE W/ MIKE FROM [facility]. HE CAME TO THE BEDSIDE TO SPEAK [place] FAMILY AND DISCUSS REFERRAL. HE PROVIDED UPDATE POST FAMILY CONFERENCE TO THE CM. THE PLAN IS FOR THE PATIENT TO BE ADMITTED TO THE [facility]. [facility] WILL ADMIT AFTER PATIENT IS DISCHARGE TO THE [facility]. WILL OBTAIN CONSENT FOR REFERRAL TO THE [facility]. DCP- Discharge Planning Updated by [id number]: Mariola Carballo on 03/29/19 12:[address] LATE ENTRY 0900 CM WAS ADVISED OF PLAN FOR [facility]. PATIENT WAS SEEN BY [facility] NURSE IN THE ER. PLAN FOR PATIENT TO BE EVALUATED BY [facility] SINGLE POINTED OPERATOR, MIKE , THIS AM. THE PATIENT APPARENNTLY HAD BEEN ON SERVICE W/ [facility], PRIOR TO ADMISSION. RICHAR SPOKE WITH THE ONCALL NURSE. SHE ONLY HAD ACCESS TO THE NOTES FOR 02/27/19 VISIT, THEY ARE IN PROCESS OF CHANGING SYSTEMS. MIKE ON SITE. SPOKE WITH THE RESEARCH PHYSICIAN, PRIMARY NURSE AND TRAM VILLALOBOS. HE HAD REVIEWED THE NOTES PROVIDED BY RICHAR . AWAITED CALL BACK FROM DR WELLER, CREDIT ASSISTANT AND HIS STATISTICIAN. IN ADDITION HE ALSO CONTACT [facility]' STATISTICIAN FOR RECENT NOTES. Last DP export: 03/29/19 12:50 pm Patient Name: ZHOU DAVIS Page [id number] at 1449 All edits/amendments must be made on the electronic document DICTATION DATE: 03/29/191447 COMMUNITY HEALTH ADVISOR: IAN 03/29/191447 RPT#: [id number] DC DATE: STATUS: ADM IN [facility] [address] [place] [address] END OF REPORT
--- NOTE | 2019-03-29 19:30 | NUR ---
PT SITTING UP IN BED WITHOUT DISTRESS, ORIENTED TO SELF. CALM AND COOPERATIVE. STATES NO PAIN BUT WHEN TURNED D/T INCONTINENCE PT YELPS OUT "OUCH." RIGHT SIDE OF PT ABD DISTENDED D/T LARGE MASS. BOWEL SOUND ABSENTS OVER RIGHT SIDE. TENDER TO TOUCH. LEFT SIDE ACTIVE. DENIES NEEDS. PT WATCHING TV. CL IN REACH, BED ALARM ON, WILL CTM
--- NOTE | 2019-03-29 21:15 | NUR ---
ASKED PT IF HE WOULD TAKE HIS MS CONTIN AND XANAX, PT AGREED. OFFERED PT SOMETHING TO DRINK, PT REQUESTED WATER. PT TOOK MEDS WITHOUT DIFFICULTY. DENIES OTHER NEEDS
[2019-03-30] VITALS: BP 125/78
[2019-03-30 04:00] VITALS: BP 134/78
[2019-03-30 06:10] LABS: BASOPHILS 0.1 % (0-2); EOSINOPHILS 0.2 % (0-7); HEMATOCRIT 30.5 % (42.0-54.0); HEMOGLOBIN 9.9 g/dL (13.5-17.5); IMMATURE GRANULOCYTES 0.3 % (0-5); LYMPHOCYTES 12.1 % (15-50); MCH 24.9 pg (26.0-34.0); MCHC 32.5 g/dL (31.0-37.0); MCV 76.6 fL (80.0-100.0); MEAN PLATELET VOLUME 9.5 fL (7.4-10.4); MONOCYTES 10.5 % (2-11); NEUTROPHILS 76.8 % (40-80); PLATELET COUNT 263 10x3/uL (130-400); RBC 3.98 10x6/uL (4.20-6.10); RDW 17.4 % (11.5-14.5)
[2019-03-30 06:27] LABS: CALC OSMOLALITY 276 mosm/kg (275-300); CALCIUM 8.6 mg/dL (8.5-10.1); CARBON DIOXIDE 25.2 mmol/L (21.0-32.0); CHLORIDE - SERUM 104 mmol/L (98-107); CREATININE - SERUM 0.5 mg/dL (0.6-1.3); GLUCOSE 107 mg/dL (74-106); SODIUM 137 mmol/L (136-145); UREA NITROGEN 20 mg/dL (7-18); eGFR NON AFRICAN AMERICAN > 90 mL/min (90-120)
[2019-03-30 09:32] VITALS: BP 139/72
--- NOTE | 2019-03-30 10:16 | NUR ---
PT ORIENTED TO SELF ONLY. BREATH SOUNDS CLEAR BILAT. RIGHT SIDE OF ABDOMEN FIRM AND DISTENDED. PT SAYS IT HURTS BUT WHEN ASKED WHAT HE WOULD RATE THE PAIN HE SAYS HE DOES NOT KNOW. IV TO LEFT FOREARM, PATENT, DRESSING CDI. BED LOW, CALL LIGHT IN REACH. NO OTHER NEEDS AT THIS TIME.
[2019-03-30 13:17] VITALS: BP 141/76
[2019-03-30 17:11] VITALS: BP 140/71
[2019-03-30 20:00] VITALS: BP 128/78
--- NOTE | 2019-03-30 23:05 | NUR ---
PT RESTING IN BED. IV LOCATED IN LEFT FOREARM NS @ 50 ML/HR, CLEAN, DRY AND INTACT. LARGE MASS LOCATED ON RIGHT SIDE OF ABDOMEN TENDER TO TOUCH, LEFT SIDE OF ABD FLAT AND SOFT NONTENDER. CONFUSED WHEN TRYING TO ANSWER QUESTIONS ABOUT NEEDS AND PAIN. BED LOW, RAILS UP X 2, CALL LIGHT IN REACH. WILL CONTINUE TO MONITOR.
--- NOTE | 2019-03-30 23:42 | NUR ---
PT SITTING UP IN BED WATCHING TV. WENT IN TO ADMINISTER DECADRON INJ PER DR ORDERS AND PATIENT BECAME ANNOYED STATED "HOW OFTEN AM I GOING TO HAVE TO DO THIS, IM TIRED OF TAKING THIS STUFF. JUST GIVE ME WHAT YOU HAVE TO, ITS FINE." BED LOW, CALL LIGHT IN REACH, RAILS UP X 2. WILL CONTINUE TO MONITOR.
[2019-03-31] VITALS: BP 152/78
[2019-03-31 00:51] LABS: APPEARANCE CLEAR (CLEAR); BILIRUBIN NEGATIVE (NEGATIVE); COLOR YELLOW (YELLOW); GLUCOSE NEGATIVE (NEGATIVE); KETONE NEGATIVE (NEGATIVE); NITRITE NEGATIVE (NEGATIVE); PROTEIN NEGATIVE (NEGATIVE); UROBILINOGEN NORMAL (NORMAL)
[2019-03-31 03:48] LABS: BASOPHILS 0 % (0-2); EOSINOPHILS 0 % (0-7); HEMATOCRIT 28.9 % (42.0-54.0); HEMOGLOBIN 9.3 g/dL (13.5-17.5); IMMATURE GRANULOCYTES 0.3 % (0-5); LYMPHOCYTES 7.6 % (15-50); MCH 24.7 pg (26.0-34.0); MCHC 32.2 g/dL (31.0-37.0); MCV 76.9 fL (80.0-100.0); MEAN PLATELET VOLUME 9.5 fL (7.4-10.4); MONOCYTES 6.3 % (2-11); NEUTROPHILS 85.8 % (40-80); RBC 3.76 10x6/uL (4.20-6.10); RDW 17.1 % (11.5-14.5); WBC 7.8 10x3/uL (4.8-10.8)
[2019-03-31 03:53] LABS: PLATELET COUNT 187 10x3/uL (130-400)
[2019-03-31 03:58] LABS: CALC OSMOLALITY 275 mosm/kg (275-300); CALCIUM 8.4 mg/dL (8.5-10.1); CARBON DIOXIDE 24.1 mmol/L (21.0-32.0); CHLORIDE - SERUM 103 mmol/L (98-107); CREATININE - SERUM 0.6 mg/dL (0.6-1.3); GLUCOSE 145 mg/dL (74-106); POTASSIUM - SERUM 4.2 mmol/L (3.5-5.1); SODIUM 136 mmol/L (136-145); UREA NITROGEN 16 mg/dL (7-18); eGFR NON AFRICAN AMERICAN > 90 mL/min (90-120)
[2019-03-31 04:00] VITALS: BP 137/70
[2019-03-31 04:50] VITALS: BP 137/70
[2019-03-31 07:56] VITALS: BP 136/70
--- NOTE | 2019-03-31 10:32 | NUR ---
PATIENT BATHED AND REPOSITIONED. CL IN REACH. JUST ARRIVED. BED ALARM ON. OJ AND FRESH WATER AT THE BEDSIDE. DENIES ANY PAIN. WATCHING TV. WCTM
--- NOTE | 2019-03-31 10:48 | MORECARE ---
CASE MANAGEMENT DISCHARGE SUMMARY PATIENT: ZHOU DAVIS UNIT: [id number] ADM DATE: 03/30/19 AGE: 63 : 55 SEX: M ROOM/BED: D.2207 AUTHOR: PAMELA,DOC PHYSICIAN: REFERRING PHYSICIAN: CARMEN AGUILERA MD DATE OF SERVICE: 03/31/19 Discharge Plan Patient Name: ZHOU DAVIS Facility: [facility]:[place] : 1955 Planned Disposition: Halfway Facility Anticipated Discharge Date: Discharge Date: Expected LOS: Initial Reviewer: [id number] Initial Review Date: 03/28/2019 Generated: 03/31/19 11:48 am DCP- Discharge Planning Updated by [email or web address]: Nedra Sams on 03/31/19 9:[address] Spoke with Monisha at the [facility] about the status of patient & she stated that they are reviewing and waiting on Auth DCP- Discharge Planning Updated by [email or web address]: Mariola Carballo on 03/29/19 1:[address] LATE ENTRY 1240 PATIENT HAD FAMILY AT THE BEDSIDE ASKING QUESTIONS REGARDING HOSPICE. MIKE HAD GONE TO THE OFFICE. PRIMARY NURSE SPOKE W/ MIKE FROM [facility]. HE CAME TO THE BEDSIDE TO SPEAK [place] FAMILY AND DISCUSS REFERRAL. HE PROVIDED UPDATE POST FAMILY CONFERENCE TO THE CM. THE PLAN IS FOR THE PATIENT TO BE ADMITTED TO THE [facility]. [facility] AFTER PATIENT IS DISCHARGE TO THE [facility]. WILL OBTAIN CONSENT FOR REFERRAL TO THE [facility]. DCP- Discharge Planning Updated by [id number]: Mariola Carballo on 03/29/19 12:[address] LATE ENTRY 0900 CM WAS ADVISED OF PLAN FOR [facility]. PATIENT WAS SEEN BY [facility] IN THE ER. PLAN FOR PATIENT TO BE EVALUATED BY [facility] BUSINESS SYSTEMS MANAGER, MIKE , THIS AM. THE PATIENT APPARENNTLY HAD BEEN ON SERVICE W/ [facility], PRIOR TO ADMISSION. RICHAR SPOKE WITH THE ONCALL NURSE. SHE ONLY HAD ACCESS TO THE NOTES FOR 02/27/19 VISIT, THEY ARE IN PROCESS OF CHANGING SYSTEMS. MIKE ON SITE. SPOKE WITH THE GEOPHYSICAL MANAGER, PRIMARY NURSE AND TRAM VILLALOBOS. HE HAD REVIEWED THE NOTES PROVIDED BY CM . AWAITED CALL BACK FROM DR WELLER, DERMATOLOGIST AND DERMATOPATHOLOGIST AND HIS MERCHANDISING ASSISTANT. IN ADDITION HE ALSO CONTACT [facility]' MERCHANDISING ASSISTANT FOR RECENT NOTES. Last DP export: 03/29/19 1:49 pm Patient Name: ZHOU DAVIS Page 11202 at 1048 All edits/amendments must be made on the electronic document DICTATION DATE: 03/31/19 1048 DINKEY OPERATOR: IAN 03/31/19 1048 RPT#: [id number] DC DATE: STATUS: ADM IN [facility] [address] [place] [address] END OF REPORT
[2019-03-31 12:24] VITALS: Ht 175.3 cm; Wt 65.8 kg
[2019-03-31 12:45] VITALS: BP 138/74
--- NOTE | 2019-03-31 14:18 | MORECARE ---
CASE MANAGEMENT DISCHARGE SUMMARY PATIENT: ZHOU DAVIS UNIT: [id number] ADM DATE: 03/30/19 AGE: 63 : 55 SEX: M ROOM/BED: D.2207 AUTHOR: PAMELA,DOC PHYSICIAN: REFERRING PHYSICIAN: CARMEN AGUILERA MD DATE OF SERVICE: 03/31/19 Discharge Plan Patient Name: ZHOU DAVIS Facility: [facility]:[place] : 1955 Planned Disposition: [facility]sp Facility Anticipated Discharge Date: Discharge Date: Expected LOS: Initial Reviewer: [email or web address] Initial Review Date: 03/28/2019 Generated: 03/31/19 3:17 pm Comments DCP- Discharge Planning Updated by [email or web address]: Nedra Sams on 03/31/19 1:[address] STILL AWAITING ON AUTH FOR [facility] WITH [facility] STILL ATTEMPTING TO GET PATIENT APPROVED FOR INPATIENT HOSPICE DCP- Discharge Planning Updated by [id number]: Nedra Sams on 03/31/19 9:[address] Spoke with Monisha at the [facility] about the status of patient & she stated that they are reviewing and waiting on Auth DCP- Discharge Planning Updated by [id number]: Mariola Carballo on 03/29/19 1:[address] LATE ENTRY 1240 PATIENT HAD FAMILY AT THE BEDSIDE ASKING QUESTIONS REGARDING HOSPICE. MIKE HAD GONE TO THE OFFICE. PRIMARY NURSE SPOKE W/ MIKE FROM [facility]. HE CAME TO THE BEDSIDE TO SPEAK [place] FAMILY AND DISCUSS REFERRAL. HE PROVIDED UPDATE POST FAMILY CONFERENCE TO THE CM. THE PLAN IS FOR THE PATIENT TO BE ADMITTED TO THE [facility]. [facility] WILL ADMIT AFTER PATIENT IS DISCHARGE TO THE [facility]. WILL OBTAIN CONSENT FOR REFERRAL TO THE [facility]. DCP- Discharge Planning Updated by [id number]: Mariola Carballo on 03/29/19 12:[address] LATE ENTRY 0900 CM WAS ADVISED OF PLAN FOR [facility]. PATIENT WAS SEEN BY [facility] IN THE ER. PLAN FOR PATIENT TO BE EVALUATED BY [facility] CLEANING TECHNICIAN, MIKE , THIS AM. THE PATIENT APPARENNTLY HAD BEEN ON SERVICE W/ [facility] HOME [facility], PRIOR TO ADMISSION. CM SPOKE WITH THE ONCALL NURSE. SHE ONLY HAD ACCESS TO THE NOTES FOR 02/27/19 VISIT, THEY ARE IN PROCESS OF CHANGING SYSTEMS. MIKE ON SITE. SPOKE WITH THE [employer] DEAN, PRIMARY NURSE AND TRAM VILLALOBOS. HE HAD REVIEWED THE NOTES PROVIDED BY RICHAR . AWAITED CALL BACK FROM DR WELLER, SHAREPOINT ADMINISTRATOR AND HIS BRIDAL GOWN FITTER. IN ADDITION HE ALSO CONTACT [facility]' BRIDAL GOWN FITTER FOR RECENT NOTES. Last DP export: 03/31/19 9:48 am Patient Name: ZHOU DAVIS Page [id number] at 1418 All edits/amendments must be made on the electronic document DICTATION DATE: 03/31/191416 FILLING AND STAPLING MACHINE OPERATOR: IAN 03/31/191416 RPT#: [id number] DC DATE: STATUS: ADM IN [facility] [address] [place] [address] END OF REPORT
[2019-03-31 15:43] VITALS: BP 133/78
--- NOTE | 2019-03-31 15:55 | MORECARE ---
CASE MANAGEMENT DISCHARGE SUMMARY PATIENT: ZHOU DAVIS UNIT: [id number] ADM DATE: 03/30/19 AGE: 63 : 55 SEX: M ROOM/BED: D.2207 AUTHOR: PAMELA,DOC PHYSICIAN: REFERRING PHYSICIAN: CARMEN AGUILERA MD DATE OF SERVICE: 03/31/19 Discharge Plan Patient Name: ZHOU DAVIS Facility: [facility]:[place] : 1955 Planned Disposition: [facility] Facility Anticipated Discharge Date: Discharge Date: Expected LOS: Initial Reviewer: [id number] Initial Review Date: 03/28/2019 Generated: 03/31/19 4:55 pm Comments DCP- Discharge Planning Updated by [email or web address]: Nedra Sams on 03/31/19 2:[address] MIKE WITH [facility] CALLED AND STATED THAT HE IS APPROVED FOR [facility] HOSPICE DCP- Discharge Planning Updated by [email or web address]: Nedra Sams on 03/31/19 1:[address] STILL AWAITING ON AUTH FOR [facility], MIKE WITH [facility] STILL ATTEMPTING TO GET PATIENT APPROVED FOR INPATIENT HOSPICE DCP- Discharge Planning Updated by [id number]: Nedra Sams on 03/31/19 9:[address] Spoke with Monisha at the [facility] about the status of patient & she stated that they are reviewing and waiting on Auth DCP- Discharge Planning Updated by [email or web address]: Mariola Carballo on 03/29/19 1:[address] LATE ENTRY 1240 PATIENT HAD FAMILY AT THE BEDSIDE ASKING QUESTIONS REGARDING HOSPICE. MIKE HAD GONE TO THE OFFICE. PRIMARY NURSE SPOKE W/ MIKE FROM [facility]. HE CAME TO THE BEDSIDE TO SPEAK [place] FAMILY AND DISCUSS REFERRAL. HE PROVIDED UPDATE POST FAMILY CONFERENCE TO THE . THE PLAN IS FOR THE PATIENT TO BE ADMITTED TO THE [facility]. [facility] WILL ADMIT AFTER PATIENT IS DISCHARGE TO THE [facility]. WILL OBTAIN CONSENT FOR REFERRAL TO THE [facility]. DCP- Discharge Planning Updated by [id number]: Mariola Carballo on 03/29/19 12:[address] LATE ENTRY 0900 CM WAS ADVISED OF PLAN FOR [facility]. PATIENT WAS SEEN BY [facility] NURSE IN THE ER. PLAN FOR PATIENT TO BE EVALUATED BY [facility] FLUXER, MIKE , THIS AM. THE PATIENT APPARENNTLY HAD BEEN ON SERVICE W/ [facility], PRIOR TO ADMISSION. RICHAR SPOKE WITH THE ONCALL NURSE. SHE ONLY HAD ACCESS TO THE NOTES FOR 02/27/19 VISIT, THEY ARE IN PROCESS OF CHANGING SYSTEMS. MIKE ON SITE. SPOKE WITH THE STONE PLANER, PRIMARY NURSE AND TRAM VILLALOBOS. HE HAD REVIEWED THE NOTES PROVIDED BY RICHAR . AWAITED CALL BACK FROM DR WELLER, INSULATION BLANKET MAKER AND HIS BUSINESS OBJECTS ANALYST. IN ADDITION HE ALSO CONTACT [facility] BUSINESS OBJECTS ANALYST FOR RECENT NOTES. Last DP export: 03/31/19 1:17 pm Patient Name: ZHOU DAVIS Page [phone] at 1555 All edits/amendments must be made on the electronic document DICTATION DATE: 03/31/191553 CONTINUING EDUCATION DEAN: IAN 03/31/191553 RPT#: [id number] DC DATE: STATUS: ADM IN [facility] [address] [place] [address] END OF REPORT
--- NOTE | 2019-04-01 13:58 | MORECARE ---
CASE MANAGEMENT DISCHARGE SUMMARY PATIENT: ZHOU DAVIS UNIT: [id number] ADM DATE: 03/30/19 AGE: 63 : 55 SEX: M ROOM/BED: D.2207 AUTHOR: PAMELADOC PHYSICIAN: REFERRING PHYSICIAN: MESERET WELLER MD DATE OF SERVICE: 04/01/19 Discharge Plan Patient Name: ZHOU DAVIS Facility: [facility]:[place] : 1955 Planned Disposition: Assisted Facility Anticipated Discharge Date: Discharge Date: 03/31/2019 Expected LOS: 0 Initial Reviewer: [id number] Initial Review Date: 03/28/2019 Generated: 04/01/19 2:58 pm DCP- Discharge Planning Updated by [id number]: Nedra Sams on 03/31/19 2:[address] MIKE WITH [facility] CALLED AND STATED THAT HE IS APPROVED FOR GIP HOSPICE DCP- Discharge Planning Updated by [id number]: Nedra Sams on 03/31/19 1:[address] STILL AWAITING ON AUTH FOR [facility], [facility] WITH [facility]ILL ATTEMPTING TO GET PATIENT APPROVED FOR INPATIENT HOSPICE DCP- Discharge Planning Updated by [id number]: Nedra Sams on 03/31/19 9:[address] Spoke with Monisha at the [facility] about the status of patient & she stated that they are reviewing and waiting on Auth DCP- Discharge Planning Updated by [email or web address]: Mariola Carballo on 03/29/19 1:[address] LATE ENTRY 1240 PATIENT HAD FAMILY AT THE BEDSIDE ASKING QUESTIONS REGARDING HOSPICE. MIKE HAD GONE TO THE OFFICE. PRIMARY NURSE SPOKE W/ MIKE FROM [facility]. HE CAME TO THE BEDSIDE TO SPEAK WITHTHE FAMILY AND DISCUSS REFERRAL. HE PROVIDED UPDATE POST FAMILY CONFERENCE TO THE . THE PLAN IS FOR THE PATIENT TO BE ADMITTED TO THE [facility]. [facility] WILL ADMIT AFTER PATIENT IS DISCHARGE TO THE [facility]. WILL OBTAIN CONSENT FOR REFERRAL TO THE [facility]. DCP- Discharge Planning Updated by [id number]: Mariola Carballo on 03/29/19 12:[address] LATE ENTRY 0900 CM WAS ADVISED OF PLAN FOR [facility]. PATIENT WAS SEEN BY [facility] NURSE IN THE ER. PLAN FOR PATIENT TO BE EVALUATED BY [facility] CABLE MAINTAINER, MIKE , THIS AM. THE PATIENT APPARENNTLY HAD BEEN ON SERVICE W/ [facility], PRIOR TO ADMISSION. RICHAR SPOKE WITH THE ONCALL NURSE. SHE ONLY HAD ACCESS TO THE NOTES FOR 02/27/19 VISIT, THEY ARE IN PROCESS OF CHANGING SYSTEMS. MIKE ON SITE. SPOKE WITH THE DIRECTOR STRATEGIC ACCOUNT MANAGEMENT, PRIMARY NURSE AND TRAM VILLALOBOS. HE HAD REVIEWED THE NOTES PROVIDED BY RICHAR . AWAITED CALL BACK FROM DR WELLER, ON AIR TALENT AND HIS HIDE DROPPER. IN ADDITION HE ALSO CONTACT [facility] HIDE DROPPER FOR RECENT NOTES. Last DP export: 03/31/19 2:55 pm Patient Name: ZHOU DAVIS Page [id number] at 1358 All edits/amendments must be made on the electronic document DICTATION DATE: 04/01/19 1356 COLLECTOR OF AQUARIUM SPECIMENS: IAN 04/01/19 1357 RPT#: [id number] DC DATE:03/31/19 STATUS: DIS IN [facility] [address] [place] [address] END OF REPORT
== END 2019-03-31 22:27 | disposition hospice, inpatient (51) | DRG 54 ==
LOC: D.ER 17:06 → D.MS 18:53 → OBSVTIME 18:53 → D.MS 18:53
PROVIDERS: Emergency Medicine; Internal Medicine Nephrology; ADMIT Legal Medicine; ATTEND Legal Medicine
DX: C79.31 Secondary malignant neoplasm of brain (principal); G93.6 Cerebral edema; G93.5 Compression of brain; G93.40 Encephalopathy, unspecified; C41.9 Malignant neoplasm of bone and articular cartilage, unspecified; I10 Essential (primary) hypertension; B19.20 Unspecified viral hepatitis C without hepatic coma; F41.9 Anxiety disorder, unspecified; H40.9 Unspecified glaucoma

== ENCOUNTER 2019-03-31 22:50 | Inpatient (IN) | payer OTHER ==
[~2019-03-31] VITALS: Ht 175.3 cm; Wt 65.9 kg
[2019-03-31 20:00] VITALS: BP 158/79
--- NOTE | 2019-03-31 21:30 | NUR ---
ADMITTED TO IN HOSPICE. PT CONFUSED. ABHINAV ALARM IN USE. MORPHINE GIVEN SCHEDULED Q 8 HOURS. RESP SHALLOW, NONLABORED. SALINE LOCK NOTED TO LT FOREARM. DIFF FOLLOWING SIMPLE COMMANDS. SR ELEVATED X2. CL IN REACH.
[2019-03-31 23:10] VITALS: BP 158/79; Ht 175.3 cm; Wt 65.9 kg
--- NOTE | 2019-04-01 00:21 | NUR ---
RESTING QUIETLY WITH EYES CLOSED. RESP SHALLOW, NONLABORED. SR ELEVATED X2. CL IN REACH.
--- NOTE | 2019-04-01 07:10 | NUR ---
PATIENT RECIEVED RESTING IN BED, HOSPICE CANCER PATIENT. PATIENT COMFORTABLE AT THIS TIME WITH MORPHINE SCHEDULED. CL IN REACH
[2019-04-01 09:30] VITALS: BP 141/84
[2019-04-01 17:42] VITALS: BP 125/63
[2019-04-01 20:00] VITALS: BP 127/76
--- NOTE | 2019-04-01 20:15 | NUR ---
LYING QUEITLY WITH NO COMPALITNS VOICED. RESP EVEN AND UNALBORED. NO DISTRESS NOTED. CL IN REACH. CONTINUES ON HOSPICE WITH NO CHANGES NOTED.
--- NOTE | 2019-04-02 08:04 | NUR ---
RESTING IN BED. ALERT WITH CONFUSION. LUNGS CLEAR BILATERALLY IN ALL CANELA. HEART SOUNDS S1 AND S2 HEARD IN ALL CANELA. BOWEL SOUNDS ACTIVE X 4. SKIN INTACT WITHOUT RENESS. IV TO LFA PATENT WITHOUT REDNESS. BED LOW. CALL SAINZ AND PERSONAL ITEMS IN REACH. WILL CONTINUE TO MONITOR.
--- NOTE | 2019-04-02 08:13 | NUR ---
I have reviewed this patient and I concur with the Shift Assessment completed by the Licensed Practical Nurse today this shift.
[2019-04-02 08:29] VITALS: BP 148/80
--- NOTE | 2019-04-02 10:51 | NUR ---
RESTING IN BED WATCHING TV. WILL CONTINUE TO MONITOR.
--- NOTE | 2019-04-02 12:15 | NUR ---
PATIENT AGITATED AND YELLING. PRN ATIVAN GIVEN. AT BEDSIDE. WILL CONTINUE TO MONITOR.
--- NOTE | 2019-04-02 18:32 | NUR ---
SLEEPING. FALL PRECAUTIONS IN PLACE. BED LOW. CALL SAINZ AND PERSONAL ITEMS IN REACH.
--- NOTE | 2019-04-02 21:34 | NUR ---
RESTING QUEITLY WITH NO DISTRESS NOTED.RESP UNLABORED. CL IN REACH
[2019-04-02 21:41] VITALS: BP 149/87
--- NOTE | 2019-04-03 00:26 | NUR ---
I have reviewed this patient and I concur with the Shift Assessment completed by the Licensed Practical Nurse today this shift.
--- NOTE | 2019-04-03 08:09 | NUR ---
PATIENT LYING IN BED MOANING AND YELLING OUT. LUNGS CLEAR BILATERALLY IN ALL CANELA. HEART SOUNDS S1 AND S2 HEARD IN ALL CANELA. BOWEL SOUND SLUGGISH X 4. SKIN INTACT WITHOUT REDNESS. IV TO LFA PATENT WITHOUT REDNESS. BED LOW. FALL PRECAUTIONS IN PLACE. CALL SAINZ AND PERSONAL ITEMS IN REACH. WILL GIVE SCHEDULED MORPHINE. WILL CONTINUE TO MONITOR.
[2019-04-03 10:01] VITALS: BP 128/62
--- NOTE | 2019-04-03 14:09 | NUR ---
PRN DULCOLAX SUPPOSITORY GIVEN PER WEATHER ANALYST.
--- NOTE | 2019-04-03 18:38 | NUR ---
SLEEPING. FALL PRECAUTIONS IN PLACE. BED LOW. CALL SAINZ AND PERSONAL ITEMS IN REACH.
--- NOTE | 2019-04-03 19:00 | NUR ---
REPORT RECEIVED AND CARE OF PT ASSUMED. PT LYING IN SUPINE POSITION WITH EYES CLOSED. IV TO LEFT FA SALINE LOCKED. BED ALARM IN USE FOR SAFETY. WILL MONITOR FOR NEEDS.
[2019-04-03 20:00] VITALS: BP 117/71
--- NOTE | 2019-04-03 22:40 | NUR ---
HS MEDICATIONS GIVEN. WILL CONTINUE TO MONITOR FOR NEEDS.
--- NOTE | 2019-04-04 07:55 | NUR ---
PT MAXIMO ALDRIDGE. ATIVAN GIVEN BY SALOMON GONZALEZ. NO S/S OF ACUTE DISTRESS. CL IN PLACE.
[2019-04-04 08:30] VITALS: BP 127/74
[2019-04-04 12:32] VITALS: BP 112/69
--- NOTE | 2019-04-04 19:00 | NUR ---
REPORT RECEIVED AND CARE OF PT ASSUMED. PT LYING IN LOW [place]ON[place]'S POSITION WITH EYES CLOSED. IV TO LEFT FA SALINE LOCKED. BED ALARM IN USE FOR SAFETY. WILL MONITOR FOR NEEDS.
[2019-04-04 20:00] VITALS: BP 119/65
--- NOTE | 2019-04-04 20:30 | NUR ---
PT CLEANED AND ALL LINENS AND GOWN CHANGED DUE TO INCONTINCE OF BOWEL AND BLADDER. POSITIONED FOR COMFORT.
--- NOTE | 2019-04-05 07:10 | NUR ---
REC'D IN BED WITH EYES CLOSED EASILY TO AROUSED WHEN NAME IS CALLED. RESP EVEN AND UNLABORED WITH NO DISTRESS NOTED. UNABLE TO VOICE NEED AND WANTS. NO PAIN NOTED FROM FACIAL GRIMACES OR MOANING. ASSESSMENT COMPLETED. C/L IN REACH AT BEDSIDE.
[2019-04-05 08:26] VITALS: BP 140/86
--- NOTE | 2019-04-05 16:29 | NUR ---
I have reviewed this patient and I concur with the Shift Assessment completed by the Licensed Practical Nurse today this shift.
--- NOTE | 2019-04-05 19:00 | NUR ---
REPORT RECEIVED AND CARE OF PT ASSUMED. PT LYING IN SUPINE POSITION WITH EYES CLOSED. IV IN LEFT FA SALINE LOCKED. WILL MONITOR FOR NEEDS.
[2019-04-05 20:00] VITALS: BP 133/83
[2019-04-06 09:10] VITALS: BP 142/80
--- NOTE | 2019-04-06 12:30 | NUR ---
TEMP OF 101.8. ADMINISTERED PRN SUPP PER ORDER. O2 APPLIED BY HOSPICE NURSE VIA NC AT 4LPM, SUCTIONING SET UP AND PERFORMED BY HOSPICE NURSE, APPLIED ICE PACKS UNDER BOTH ARMS. BED LOWERED AND LOCKED, CALL LIGHT WITHIN REACH. CPOC
--- NOTE | 2019-04-06 13:30 | NUR ---
RECHECK TEMPATURE OF 97.9. BED LOWERED AND LOCKED, CALL LIGHT WITHIN REACH CPOC
--- NOTE | 2019-04-06 17:01 | NUR ---
EYES OPEN, SHORT SHALLOW BREATHS, NO AUDIBLE GURGLING, ON 4LPM VIA NC, INCONTIENT OF URINE, NO BM TODAY, REPOSITIONED TO LEFT SIDE, BED LOWERED AND LOCKED, CALL LIGHT WITHIN REACH. CPOC
--- NOTE | 2019-04-06 19:00 | NUR ---
REPORT RECEIVED AND CARE OF PT ASSUMED. PT LYING IN HIGH FOWLERS POSITION. O2 IN USE VIA NC PLACED IN MOUTH AT 4L. PT HAS BLANK STARE AND DOES NOT RESPOND TO VOICE OR TOUCH. BEDPADS CLEAN AND DRY. WILL MONITOR FOR NEEDS.
[2019-04-06 20:44] VITALS: BP 132/93
--- NOTE | 2019-04-06 23:12 | NUR ---
HELD SCHEDULED MORPHINE AND ATIVAN PT VERY STILL WITH FIXED STARE SINCE SHIFT CHANGE. WILL CONTINUE TO MONITOR FOR NEEDS.
--- NOTE | 2019-04-07 04:50 | NUR ---
PT HEART STOPPED AND NO RESPIRATIONS. PAGED HOSPICE NURSE.
--- NOTE | 2019-04-07 04:56 | NUR ---
CALLED [facility] SURGEON TO ADVISE OF .
--- NOTE | 2019-04-07 05:12 | NUR ---
[facility]ICE NURSE, TYLER, SALOMON RETURNED CALL AND IS EN ROUTE.
--- NOTE | 2019-04-07 06:43 | NUR ---
PT PRONOUNCED BY HOSPICE NURSE.
--- NOTE | 2019-04-07 08:28 | NUR ---
HOME HAS ARRIVED
--- NOTE | 2019-04-07 11:24 | MORECARE ---
CASE MANAGEMENT DISCHARGE SUMMARY PATIENT: ZHOU DAVIS UNIT: [id number] ADM DATE: 03/31/19 AGE: 63 : 55 SEX: M ROOM/BED: D.2207 AUTHOR: ANNETTE SANTIAGO PHYSICIAN: REFERRING PHYSICIAN: MESERET WELLER MD DATE OF SERVICE: 04/07/19 Discharge Plan Patient Name: [facility]HOU [facility] [facility] 1955 Planned Disposition: Anticipated Discharge Date: Discharge Date: 04/07/2019 Expected LOS: 0 Initial Reviewer: [id number] Initial Review Date: 03/31/2019 Generated: 04/07/19 12:24 pm Patient Name: ZHOU DAVIS Page [phone] at [phone] All edits/amendments must be made on the electronic document DICTATION DATE: 04/07/19 112 LABORER DRYING DEPARTMENT: IAN 04/07/19 1123 RPT#: [id number] DC DATE:04/07/19 STATUS: DIS IN [facility] [address] [place] [address] END OF REPORT
== END 2019-04-07 06:43 | DRG 951 ==
LOC: D.MS 22:50
PROVIDERS: ADMIT Legal Medicine; ATTEND Legal Medicine
DX: Z51.5 Encounter for palliative care (principal)